=== PATIENT | male | born 1975 | race American Indian/Alaskan Native ===

== ENCOUNTER 2021-08-09 21:42 | Inpatient (IN) | payer OTHER ==
--- NOTE | 2021-08-09 22:04 | Emergency Department Report ---
ED General Adult HPI - General Chief complaint: Abdominal Pain Stated complaint: PANCREATITIS Time Seen by Provider: 08/09/21 22:03 Source: patient, EMS (Verbal report received from emergency medical services. EMS documentation not available at time of chart dictation ), RN notes reviewed, old records reviewed Mode of arrival: Stretcher Limitations: Physical Limitation - History of Present Illness Initial comments: The patient is a patient within the [facility] network. The patient is referred to the emergency room by the [facility] outside acute care facility for evaluation. The patient has a history of pancreatitis, and alcohol abuse, who presents to the ER today with acute abdominal pain. While at the [facility] outside facility, he received sodium chloride, Protonix, Zofran, Toradol, morphine, morphine, Benadryl, Zofran, Reglan, and hydromorphone. He received copious fluids, including a banana bag. He had an extensive laboratory evaluation performed, which demonstrated elevated lipase, of 1700, anion gap acidosis, with an anion gap of 29, was also found to have nonspecific transaminitis. The patient complains of profuse and diffuse abdominal pain with nausea and vomiting. No chest pain. No shortness of breath. No homicidality or suicidality. He was also found to have a GFR of 77, and a creatinine of 1.3. As his symptoms are markedly improved in the emergency room with additional hydromorphone. A CT scan of the abdomen pelvis and ultrasound were ordered, but had not been performed secondary to need to transfer this patient to the emergency room for emergent evaluation -: days(s) Location: abdomen Quality: aching Consistency: constant Improves with: medication, rest Worsens with: movement - Related Data Allergies Allergy/AdvReac Type Severity Reaction Status Date / Time sertraline Allergy Hives Verified 08/09/21 21:54 ED Review of Systems ROS: Stated complaint: PANCREATITIS Other details as noted in HPI Constitutional: malaise. denies: fever Eyes: denies: eye discharge ENT: denies: epistaxis Respiratory: denies: cough Cardiovascular: denies: chest pain Gastrointestinal: abdominal pain, nausea, vomiting Neurological: weakness Psychiatric: denies: homicidal thoughts, suicidal thoughts ED Physical Exam - General Limitations: Physical Limitation General appearance: alert, anxious, in distress, obese - Head Head exam: Present: atraumatic, normocephalic - Eye Eye exam: Present: normal appearance, EOMI. Absent: nystagmus - ENT ENT exam: Present: normal exam, mucous membranes dry, normal external ear exam - Neck Neck exam: Present: normal inspection, full ROM. Absent: tenderness, meningismus - Respiratory Respiratory exam: Present: normal lung sounds bilaterally. Absent: respiratory distress, wheezes, rales, rhonchi, stridor, decreased breath sounds - Cardiovascular Cardiovascular Exam: Present: normal rhythm, tachycardia, normal heart sounds. Absent: bradycardia, irregular rhythm, systolic murmur, diastolic murmur, rubs, gallop - GI/Abdominal GI/Abdominal exam: Present: soft, tenderness. Absent: distended, guarding, rebound, rigid, pulsatile mass - Rectal Rectal exam: Present: deferred - Extremities Exam Extremities exam: Present: normal inspection, full ROM, other (2+ pulses noted in the bilateral upper and lower extremities. There is no palpable cord. negative Homans sign. Muscular compartments are soft. The pelvis is stable.). Absent: pedal edema, calf tenderness - Back Exam Back exam: Present: normal inspection. Absent: tenderness, CVA tenderness (R), CVA tenderness (L), paraspinal tenderness, vertebral tenderness - Neurological Exam Neurological exam: Present: alert, oriented X3, other (No facial droop. Tongue midline. Extraocular movements intact bilaterally. Facial sensation intact to light touch in V1, V2, V3 distribution bilaterally. 5 and a 5 strength in 4 extremities. Sensation intact to light touch in 4 extremities.) - Psychiatric Psychiatric exam: Present: anxious. Absent: homicidal ideation, suicidal ideation - Skin Skin exam: Present: warm, dry, intact, normal color. Absent: rash ED Course Vital Signs 08/09/21 08/09/21 08/10/21 21:54 23:02 00:23 Temperature 98 F 97.9 F Pulse Rate 76 124 H 98 H Respiratory 18 32 H 19 Rate Blood Pressure 143/86 Blood Pressure 156/101 159/96 [Left] O2 Sat by Pulse 100 100 100 Oximetry - Reevaluation(s) Reevaluation #1: 08/09/21 23:42 Differential diagnosis, include but not limited to: Pancreatitis, dehydration, metabolic acidosis Assessment and plan: 45-year-old gentleman with outpatient laboratory studies suggesting dehydration, metabolic acidosis, transaminitis and pancreatitis. He is acutely tender, and may have a component of alcohol withdrawal, manifested by tachycardia, and tongue fasciculations. CT scan abdomen pelvis demonstrates pancreatitis. Laboratory studies pending, patient resting comfortably in stretcher at this time. We are currently reaching out to the [facility] to coordinate care. Recommend admission for acute pancreatitis, and correction of metabolic derangement. We are awaiting callback from their hub physician 08/10/21 00:10 Discussed the patient's history, physical, imaging studies and clinical impressi on with [facility] coordinating physician, Dr. Cottrell. He authorizes this patient to be admitted to this facility. I agree with this plan of care, given metabolic derangements, vital signs, and narcotic requirements for pain control. Hospital physician, Dr. Krystal Bullard to admit to [facility] ED Medical Decision Making - Lab Data Result diagrams: 08/09/21 23:04 08/09/21 23:04 Vital Signs 08/09/21 23:02 Temperature 97.9 F Pulse Rate 124 H Respiratory 32 H Rate Blood Pressure 156/101 [Left] O2 Sat by Pulse 100 Oximetry Lab Results 08/09/21 08/09/21 08/09/21 Range/Units 23:04 23:04 23:04 WBC 8.8 (4.5-11.0) K/mm3 RBC 3.19 L (3.65-5.03) M/mm3 Hgb 11.3 L (11.8-15.2) gm/dl Hct 33.9 L (35.5-45.6) % MCV 106 H (84-94) fl MCH 35 H (28-32) pg MCHC 33 (32-34) % RDW 15.0 (13.2-15.2) % Plt Count 194 (140-440) K/mm3 Lymph % (Auto) 7.5 L (13.4-35.0) % [place] % (Auto) 14.0 H (0.0-7.3) % Eos % (Auto) 0.0 (0.0-4.3) % Baso % (Auto) 0.1 (0.0-1.8) % Lymph # (Auto) 0.7 L (1.2-5.4) K/mm3 [place] # (Auto) 1.2 H (0.0-0.8) K/mm3 Eos # (Auto) 0.0 (0.0-0.4) K/mm3 Baso # (Auto) 0.0 (0.0-0.1) K/mm3 Seg Neutrophils % 78.4 H (40.0-70.0) % Seg Neutrophils # 6.9 (1.8-7.7) K/mm3 Sodium 135 L (137-145) mmol/L Potassium 4.3 (3.6-5.0) mmol/L Chloride 98.0 (98-107) mmol/L Carbon Dioxide 3 L* (22-30) mmol/L Anion Gap 38 mmol/L BUN 11 (9-20) mg/dL Creatinine 1.1 (0.8-1.3) mg/dL Estimated GFR > 60 ml/min BUN/Creatinine Ratio 10 % Glucose 213 H (75-100) mg/dL Calcium 7.4 L (8.4-10.2) mg/dL Magnesium 1.90 (1.7-2.3) mg/dL Total Bilirubin 1.30 H (0.1-1.2) mg/dL Direct Bilirubin 0.6 H (0-0.2) mg/dL Indirect Bilirubin 0.7 mg/dL AST 177 H (5-40) units/L ALT 80 H (7-56) units/L Alkaline Phosphatase 100 (35-129) units/L Total Creatine Kinase 86 (55-170) units/L Total Protein 7.0 (6.3-8.2) g/dL Albumin 3.7 L (3.9-5) g/dL Albumin/Globulin Ratio 1.1 % Lipase 2715 H (13-60) units/L Plasma/Serum Alcohol < 0.01 (0-0.07) % - EKG Data -: EKG Interpreted by In EKG shows normal: sinus rhythm Rate: tachycardia - EKG Data When compared to previous EKG there are: previous EKG unavailable 08/09/21 23:37 The EKG is interpreted at 22: 22 Sinus rhythm, tachycardia, rate 109 bpm. Normal axis, normal P wave axis, high left ventricular voltage, and motion artifact. This is an abnormal EKG. This is not a STEMI - Radiology Data Radiology results: pending, report reviewed, image reviewed CT ABDOMEN AND PELVIS WITH CONTRAST HISTORY: acute abd pain pancreatitis COMPARISON: None TECHNIQUE: Routine abdominal and pelvic CT exam performed following intravenous contrast administration.. All CT scans at this location are performed using CT dose reduction for ALARA by means of automated exposure control. FINDINGS: CT ABDOMEN: Lung Bases: No significant abnormality. Liver: Decreased attenuation consistent with hepatic steatosis. Biliary: Multiple gallstones in the gallbladder without wall thickening or distention. Spleen: No significant abnormality. Unenlarged. Pancreas: Peripancreatic fat stranding and edema consistent with acute pancreatitis. No appreciable chondrosis or fluid collection. Adrenals: No significant abnormality. Kidneys: No significant abnormality. Lymphatics: No lymphadenopathy. Vasculature: No significant abnormality. Bowel/Peritoneum: No significant abnormality. No free air. No free fluid. CT PELVIC: : No significant abnormality. Lymphatics: No lymphadenopathy. Osseous Structures: No aggressive appearing osseous lesions. Additional Findings: None IMPRESSION: 1. Acute pancreatitis without necrosis or fluid collection. 2. Hepatic steatosis. 3. Cholelithiasis without evidence of acute cholecystitis. Signer Name: Raffy Redman MD Signed: 08/09/2021 10:18 PM Workstation Name: [id number] Critical care attestation.: If time is entered above; I have spent that time in minutes in the direct care of this critically ill patient, excluding procedure time. ED Disposition Clinical Impression: Acute abdominal pain, Metabolic acidosis, Acute pancreatitis, Alcohol dependence Disposition: 09 ADMITTED INPATIENT Is pt being admited?: Yes Does the pt Need Aspirin: No Condition: Good
[2021-08-09] MEDS ORDERED: HYDROmorphone 1 MG/1 ML INJ IV ONE ×2 (22:26→23:08)
[2021-08-09] MEDS ORDERED: METOCLOPRAMIDE 10 MG/2 ML INJ IV ONE (22:26)
[2021-08-09] MEDS ORDERED: LACTATED RINGERS 1,000 ML IV ONE (22:26)
[2021-08-09] MEDS ORDERED: LORazepam 2 MG/ML VIAL IV PRN ×2 (22:26)
[2021-08-09] MEDS ORDERED: FAMOTIDINE 20 MG/2 ML INJ IV ONE (23:16)
--- NOTE | 2021-08-09 23:23 | Cat Scan Report ---
CT ABDOMEN AND PELVIS WITH CONTRAST HISTORY: acute abd pain pancreatitis COMPARISON: None TECHNIQUE: Routine abdominal and pelvic CT exam performed following intravenous contrast administrat ion.. All CT scans at this location are performed using CT dose reduction for ALARA by means of autom ated exposure control. FINDINGS: CT ABDOMEN: Lung Bases: No significant abnormality. Liver: Decreased attenuation consistent with hepatic steatosis. Biliary: Multiple gallstones in the gallbladder without wall thickening or distention. Spleen: No significant abnormality. Unenlarged. Pancreas: Peripancreatic fat stranding and edema consistent with acute pancreatitis. No appreciable c hondrosis or fluid collection. Adrenals: No significant abnormality. Kidneys: No significant abnormality. Lymphatics: No lymphadenopathy. Vasculature: No significant abnormality. Bowel/Peritoneum: No significant abnormality. No free air. No free fluid. CT PELVIC: : No significant abnormality. Lymphatics: No lymphadenopathy. Osseous Structures: No aggressive appearing osseous lesions. Additional Findings: None IMPRESSION: 1. Acute pancreatitis without necrosis or fluid collection. 2. Hepatic steatosis. 3. Cholelithiasis without evidence of acute cholecystitis. Signer Name: Raffy Redman MD Signed: 08/09/2021 11:18 PM Workstation Name: [id number]
[2021-08-10] MEDS ORDERED: HYDROmorphone 1 MG/1 ML INJ IV ONE (00:07)
[2021-08-10 00:15] LABS: Alanine Aminotransferase 80 units/L (7-56); Albumin 3.7 g/dL (3.9-5); BUN/Creatinine Ratio 10; Bilirubin,Direct 0.6 mg/dL (0-0.2); Blood Urea Nitrogen 11 mg/dL (9-20); Calcium 7.4 mg/dL (8.4-10.2); Hemolysis Index 98
[2021-08-10 00:32] LABS: Basophils % (Auto) 0.1 % (0.0-1.8); Hematocrit 33.9 % (35.5-45.6); Hemoglobin 11.3 gm/dl (11.8-15.2); Lymphocytes # (Auto) 0.7 K/mm3 (1.2-5.4); Lymphocytes % (Auto) 7.5 % (13.4-35.0); Mean Corpuscular HGB Conc 33 % (32-34); Mean Corpuscular Volume 106 fl (84-94); Monocytes # (Auto) 1.2 K/mm3 (0.0-0.8); Platelet Count 194 K/mm3 (140-440); Red Blood Count 3.19 M/mm3 (3.65-5.03)
[2021-08-10] MEDS ORDERED: SODIUM CHLORIDE 0.9% 1000 ML 2,000 ML IV ONE (00:57)
--- NOTE | 2021-08-10 01:11 | History and Physical Report ---
History of Present Illness Date of examination: 08/10/21 Date of admission: August 10, 2021 Chief complaint: Severe abdominal pain for 2 days History of present illness: 45-year-old -[place] female with no significant past medical history except for pancreatitis in the past sent by [facility] for severe abdominal pain of 2 days duration. Patient was also sent with abnormal labs. As per [place] patient has high lipase level of 1700, metabolic acidosis and transaminitis. Work-up was done in the emergency room which also showed increased lipase and pancreatitis on CT scan of the abdomen. Patient is being admitted for severe abdominal pain and nausea and vomiting of 2 days duration. Patient had alcohol 2 days ago. Patient is is not willing to quantify the alcohol level amount he is taking. Patient is a poor historian. Pain is 10 on a scale of 1-10. Severe and sharp in nature. Review of Systems ROS: Stated complaint: PANCREATITIS Other details as noted in HPI Constitutional: malaise. denies: fever Eyes: denies: eye discharge ENT: denies: epistaxis Respiratory: denies: cough Cardiovascular: denies: chest pain Gastrointestinal: abdominal pain, nausea, vomiting Neurological: weakness Psychiatric: denies: homicidal thoughts, suicidal thoughts Past History Past Medical History: hypertension, other (Pancreatitis) Past Surgical History: No surgical history Social history: lives with family, alcohol abuse, full code Family history: hypertension Medications and Allergies Allergies Allergy/AdvReac Type Severity Reaction Status Date / Time sertraline Allergy Hives Verified 08/09/21 21:54 Active Meds: Active Medications Lorazepam (Lorazepam 2 Mg/Ml Vial) 2 mg IV Q1HR PRN PRN Reason: CIWA-Ar 8-15 Lorazepam (Lorazepam 2 Mg/Ml Vial) 4 mg IV Q1HR PRN PRN Reason: CIWA-Ar 16-25 Lorazepam (Lorazepam 2 Mg/Ml Vial) 4 mg IV Q15MIN PRN PRN Reason: CIWA-Ar >25 Exam - Constitutional Vitals: Temp Pulse Resp BP Pulse Ox 97.9 F 98 H 19 159/96 100 08/09/21 23:02 08/10/21 00:23 08/10/21 00:23 08/10/21 00:23 08/10/21 00:23 General appearance: Present: severe distress, well-nourished - EENT Eyes: Present: PERRL ENT: hearing intact, clear oral mucosa - Neck Neck: Present: supple, normal ROM - Respiratory Respiratory effort: normal Respiratory: bilateral: CTA - Cardiovascular Heart rate: 78 Rhythm: regular Heart Sounds: Present: S1 & S2. Absent: rub, click - Extremities Extremities: pulses symmetrical, No edema Peripheral Pulses: within normal limits - Abdominal General gastrointestinal: Present: soft, tender, non-distended, normal bowel sounds Localized gastrointestinal: tender: diffuse, guarding: diffuse, rebound: diffuse Male genitourinary: Present: normal - Integumentary Integumentary: Present: clear, warm, dry - Musculoskeletal Musculoskeletal: gait normal, strength equal bilaterally - Psychiatric Psychiatric: appropriate mood/affect, intact judgment & insight - Neurologic Neurologic: CNII-XII intact, moves all extremities - Allied Health Allied health notes reviewed: nursing, case management Results - Labs CBC & Chem 7: 08/09/21 23:04 08/09/21 23:04 Labs: Laboratory Last Values WBC 8.8 K/mm3 (4.5-11.0) 08/09/21 23:04 RBC 3.19 M/mm3 (3.65-5.03) L 08/09/21 23:04 Hgb 11.3 gm/dl (11.8-15.2) L 08/09/21 23:04 Hct 33.9 % (35.5-45.6) L 08/09/21 23:04 MCV 106 fl (84-94) H 08/09/21 23:04 MCH 35 pg (28-32) H 08/09/21 23:04 MCHC 33 % (32-34) 08/09/21 23:04 RDW 15.0 % (13.2-15.2) 08/09/21 23:04 Plt Count 194 K/mm3 (140-440) 08/09/21 23:04 Lymph % (Auto) 7.5 % (13.4-35.0) L 08/09/21 23:04 [place] % (Auto) 14.0 % (0.0-7.3) H 08/09/21 23:04 Eos % (Auto) 0.0 % (0.0-4.3) 08/09/21 23:04 Baso % (Auto) 0.1 % (0.0-1.8) 08/09/21 23:04 Lymph # (Auto) 0.7 K/mm3 (1.2-5.4) L 08/09/21 23:04 [place] # (Auto) 1.2 K/mm3 (0.0-0.8) H 08/09/21 23:04 Eos # (Auto) 0.0 K/mm3 (0.0-0.4) 08/09/21 23:04 Baso # (Auto) 0.0 K/mm3 (0.0-0.1) 08/09/21 23:04 Seg Neutrophils % 78.4 % (40.0-70.0) H 08/09/21 23:04 Seg Neutrophils # 6.9 K/mm3 (1.8-7.7) 08/09/21 23:04 Sodium 135 mmol/L (137-145) L 08/09/21 23:04 Potassium 4.3 mmol/L (3.6-5.0) 08/09/21 23:04 Chloride 98.0 mmol/L (98-107) 08/09/21 23:04 Carbon Dioxide 3 mmol/L (22-30) L* 08/09/21 23:04 Anion Gap 38 mmol/L 08/09/21 23:04 BUN 11 mg/dL (9-20) 08/09/21 23:04 Creatinine 1.1 mg/dL (0.8-1.3) 08/09/21 23:04 Estimated GFR > 60 ml/min 08/09/21 23:04 BUN/Creatinine Ratio 10 % 08/09/21 23:04 Glucose 213 mg/dL (75-100) H 08/09/21 23:04 Calcium 7.4 mg/dL (8.4-10.2) L 08/09/21 23:04 Magnesium 1.90 mg/dL (1.7-2.3) 08/09/21 23:04 Total Bilirubin 1.30 mg/dL (0.1-1.2) H 08/09/21 23:04 Direct Bilirubin 0.6 mg/dL (0-0.2) H 08/09/21 23:04 Indirect Bilirubin 0.7 mg/dL 08/09/21 23:04 AST 177 units/L (5-40) H 08/09/21 23:04 ALT 80 units/L (7-56) H 08/09/21 23:04 Alkaline Phosphatase 100 units/L (35-129) 08/09/21 23:04 Total Creatine Kinase 86 units/L (55-170) 08/09/21 23:04 Total Protein 7.0 g/dL (6.3-8.2) 08/09/21 23:04 Albumin 3.7 g/dL (3.9-5) L 08/09/21 23:04 Albumin/Globulin Ratio 1.1 % 08/09/21 23:04 Lipase 2715 units/L (13-60) H 08/09/21 23:04 Plasma/Serum Alcohol < 0.01 % (0-0.07) 08/09/21 23:04 Short CBC 08/09/21 Range/Units 23:04 WBC 8.8 (4.5-11.0) K/mm3 Hgb 11.3 L (11.8-15.2) gm/dl Hct 33.9 L (35.5-45.6) % Plt Count 194 (140-440) K/mm3 BMP 08/09/21 23:04 Sodium 135 L Potassium 4.3 Chloride 98.0 Carbon Dioxide 3 L* BUN 11 Creatinine 1.1 Glucose 213 H Calcium 7.4 L Cardiac Enzymes 08/09/21 Range/Units 23:04 Total Creatine Kinase 86 (55-170) units/L Liver Function 08/09/21 Range/Units 23:04 Total Bilirubin 1.30 H (0.1-1.2) mg/dL Direct Bilirubin 0.6 H (0-0.2) mg/dL AST 177 H (5-40) units/L ALT 80 H (7-56) units/L Alkaline Phosphatase 100 (35-129) units/L Albumin 3.7 L (3.9-5) g/dL Urine 08/10/21 Range/Units 01:25 Urine Color Yellow (Yellow) Urine pH 5.0 (5.0-7.0) Ur Specific [place] 1.028 (1.003-1.030) Urine Protein 30 mg/dl (Negative) mg/dL Urine Glucose (UA) 50 (Negative) mg/dL - Imaging and Cardiology CT scan - abdomen: report reviewed Imaging and Cardiology: CT of the abdomen Findings Biliary multiple gallstones in the gallbladder without wall thickening or distention Pancreas--peripancreatic fat stranding and edema consistent with acute pancreatitis. No appreciable chondrosis of fluid collection. Final impression acute pancreatitis without necrosis of fluid collection Hepatic steatosis Cholelithiasis without evidence of cholecystitis Assessment and Plan Advance Directives: Yes (Full code) VTE prophylaxis?: Chemical Plan of care discussed with patient/family: Yes - Patient Problems (1) Acute pancreatitis Current Visit: Yes Status: Acute Plan to address problem: Possible alcohol induced versus gallstone induced. Patient has multiple gallstones without acute cholecystitis Lipase is 2715 We will keep the patient n.p.o. IV fluids for now Pain control for now (2) Metabolic acidosis Current Visit: Yes Status: Acute Plan to address problem: Secondary to persistent vomiting IV fluids for now Check bicarb level (3) Dehydration Current Visit: Yes Status: Acute Plan to address problem: IV fluids for now (4) EtOH dependence Current Visit: Yes Status: Acute Plan to address problem: CIWA protocol initiated (5) Cholelithiasis Current Visit: Yes Status: Chronic Qualifiers: Cholelithiasis location: gallbladder Biliary obstruction: without biliary obstruction Plan to address problem: Cholelithiasis without cholecystitis Surgery consult (6) Transaminitis Current Visit: Yes Status: Acute Plan to address problem: Check hepatitis profile Possible alcohol induced Possible gallstone induced (7) Hypocalcemia Current Visit: Yes Status: Acute Plan to address problem: IV calcium given Caltrate when the pancreatitis resolves (8) Anemia Current Visit: Yes Status: Chronic Plan to address problem: Anemia work-up Serum folic acid and B12 levels and iron levels (9) Malnutrition Current Visit: Yes Status: Chronic Qualifiers: Protein-calorie malnutrition severity: mild Plan to address problem: Dietary supplements when patient starts eating (10) DVT prophylaxis Current Visit: Yes Status: Acute Plan to address problem: On heparin and GI prophylaxis (11) Advance care planning Current Visit: Yes Status: Acute Plan to address problem: Disease education conducted, care plan discussed, diagnosis discussed, prognosis discussed. Patient is full code./Patient acknowledged understanding and agreement with care plan +30 minutes.
[2021-08-10] MEDS ORDERED: HYDROmorphone 1 MG/1 ML INJ IV PRN (01:21)
[2021-08-10 01:56] LABS: INR 1.15 (0.87-1.13)
[2021-08-10 02:06] LABS: Bilirubin,Urine NEG (Negative); Blood,Urine SM (Negative); Color,Urine Yellow (Yellow); Hyaline Casts,Urine 13 /LPF; Mucus,Urine FEW /HPF; Urobilinogen,Urine < 2.0 mg/dL (<2.0)
[2021-08-10] MEDS: ONDANSETRON 4 MG/2 ML INJ IV PRN ×2 (03:07→22:36)
[2021-08-10] MEDS: MORPHINE 2 MG/1 ML INJ IV PRN ×4 (03:08→20:42)
[2021-08-10] MEDS: LORazepam 2 MG/ML VIAL IV PRN ×2 (05:13→15:42)
[2021-08-10] MEDS: D5W/0.9% NACL 1,000 ML IV SCH (05:37)
[2021-08-10] MEDS ORDERED: CALCIUM GLUCONATE 2,000 MG in SODIUM CHLORIDE 0.9% 100 ML IV ONE (05:53)
[2021-08-10 06:12] LABS: Alanine Aminotransferase 91 units/L (7-56); Albumin 4.8 g/dL (3.9-5); BUN/Creatinine Ratio 6; Blood Urea Nitrogen 7 mg/dL (9-20); Calcium 8.3 mg/dL (8.4-10.2); Hemolysis Index 3
[2021-08-10 06:13] LABS: % Iron Saturation 20.97 %
[2021-08-10 06:23] LABS: Basophils % (Auto) 0.1 % (0.0-1.8); Hematocrit 40.9 % (35.5-45.6); Hemoglobin 13.8 gm/dl (11.8-15.2); Lymphocytes # (Auto) 0.5 K/mm3 (1.2-5.4); Lymphocytes % (Auto) 5.7 % (13.4-35.0); Mean Corpuscular HGB Conc 34 % (32-34); Mean Corpuscular Volume 106 fl (84-94); Monocytes # (Auto) 0.8 K/mm3 (0.0-0.8); Platelet Count 199 K/mm3 (140-440); Red Blood Count 3.86 M/mm3 (3.65-5.03)
--- NOTE | 2021-08-10 07:43 | Consultation ---
History of Present Illness Consult date: 08/10/21 Reason for consult: abdominal pain Chief complaint: 45-year-old -[place]ian female with no significant past medical history except for pancreatitis in the past sent by [facility] for severe abdominal pain of 2 days duration. Patient was also sent with abnormal labs. As per [place] patient has high lipase level of 1700, metabolic acidosis and transaminitis. Work-up was done in the emergency room which also showed increased lipase and pancreatitis on CT scan of the abdomen. Patient is being admitted for severe abdominal pain and nausea and vomiting of 2 days duration. Patient had alcohol 2 days ago. Patient is is not willing to quantify the alcohol level amount he is taking. Patient is a poor historian. Pain is 10 on a scale of 1-10. Severe and sharp in nature. Patient seen this morning with continued pain and nausea no vomiting. He was given an explanation of his pain being from pancreatitis related to EtOH. He is advised to abstain from any further alcohol use. Continue n.p.o. at this time. Past History Past Medical History: hypertension, other (Pancreatitis) Past Surgical History: No surgical history Social history: lives with family, alcohol abuse, full code Family history: hypertension Medications and Allergies Allergies Allergy/AdvReac Type Severity Reaction Status Date / Time sertraline Allergy Hives Verified 08/09/21 21:54 Active Meds: Active Medications Acetaminophen (Acetaminophen 325 Mg Tab) 650 mg PO Q4H PRN PRN Reason: Pain MILD(1-3)/Fever >100.5/MATIAS Heparin Sodium (Porcine) (Heparin 5,000 Unit/1 Ml Vial) 5,000 unit SUB-Q Q12HR TINO Hydromorphone HCl (Hydromorphone 1 Mg/1 Ml Inj) 1 mg IV Q2H PRN PRN Reason: Pain , Severe (7-10) Dextrose/Sodium Chloride (D5ns) 1,000 mls @ 100 mls/hr IV DIRECT TINO Last Admin: 08/10/21 05:37 Dose: 100 mls/hr Lorazepam (Lorazepam 2 Mg/Ml Vial) 2 mg IV Q1HR PRN PRN Reason: CIWA-Ar 8-15 Last Admin: 08/10/21 05:13 Dose: 2 mg Lorazepam (Lorazepam 2 Mg/Ml Vial) 4 mg IV Q1HR PRN PRN Reason: CIWA-Ar 16-25 Lorazepam (Lorazepam 2 Mg/Ml Vial) 4 mg IV Q15MIN PRN PRN Reason: CIWA-Ar >25 Metoclopramide HCl (Metoclopramide 10 Mg/2 Ml Inj) 10 mg IV Q6H PRN PRN Reason: Nausea And Vomiting Morphine Sulfate (Morphine 2 Mg/1 Ml Inj) 2 mg IV Q4H PRN PRN Reason: Pain, Moderate (4-6) Last Admin: 08/10/21 03:08 Dose: 2 mg Ondansetron HCl (Ondansetron 4 Mg/2 Ml Inj) 4 mg IV Q3H PRN PRN Reason: Nausea And Vomiting Last Admin: 08/10/21 03:07 Dose: 4 mg Sodium Chloride (Sodium Chloride 0.9% 10 Ml Flush Syringe) 10 ml IV BID TINO Sodium Chloride (Sodium Chloride 0.9% 10 Ml Flush Syringe) 10 ml IV PRN PRN PRN Reason: LINE FLUSH Exam Vital Signs Temp Pulse Resp BP Pulse Ox 98 F 76 18 143/86 100 08/09/21 21:54 08/09/21 21:54 08/09/21 21:54 08/09/21 21:54 08/09/21 21:54 - General physical appearance Positive: well developed - Eyes Positive: PERRL - Neck Positive: no masses, no bruits, trachea midline - Respiratory Positive: normal expansion - Cardiovascular Rhythm: regular - Extremities Extremities: no ischemia, No edema - Abdomen Abdomen: Present: tender, guarding. Absent: distended, masses, rebound, rigid - Integumentary no rash - Neurologic Neurologic: alert and oriented to time, place and person, motor strength and sensation are grossly intact, CN II-XII intact Results - Labs 08/10/21 05:32 08/10/21 05:32 Abnormal lab results 08/09/21 08/09/21 08/09/21 Range/Units 23:04 23:04 23:04 RBC 3.19 L (3.65-5.03) M/mm3 Hgb 11.3 L (11.8-15.2) gm/dl Hct 33.9 L (35.5-45.6) % MCV 106 H (84-94) fl MCH 35 H (28-32) pg Lymph % (Auto) 7.5 L (13.4-35.0) % Lucas % (Auto) 14.0 H (0.0-7.3) % Lymph # (Auto) 0.7 L (1.2-5.4) K/mm3 Lucas # (Auto) 1.2 H (0.0-0.8) K/mm3 Seg Neutrophils % 78.4 H (40.0-70.0) % PT 16.0 H (12.2-14.9) Sec. INR 1.15 H (0.87-1.13) Sodium 135 L (137-145) mmol/L Carbon Dioxide 3 L* (22-30) mmol/L BUN (9-20) mg/dL Glucose 213 H (75-100) mg/dL Calcium 7.4 L (8.4-10.2) mg/dL Total Bilirubin 1.30 H (0.1-1.2) mg/dL Direct Bilirubin 0.6 H (0-0.2) mg/dL AST 177 H (5-40) units/L ALT 80 H (7-56) units/L Total Protein (6.3-8.2) g/dL Albumin 3.7 L (3.9-5) g/dL Lipase 2715 H (13-60) units/L Vitamin B12 (211-911) pg/mL 08/10/21 08/10/21 08/10/21 Range/Units 05:32 05:32 05:32 RBC (3.65-5.03) M/mm3 Hgb (11.8-15.2) gm/dl Hct (35.5-45.6) % MCV 106 H (84-94) fl MCH 36 H (28-32) pg Lymph % (Auto) 5.7 L (13.4-35.0) % Lucas % (Auto) 9.0 H (0.0-7.3) % Lymph # (Auto) 0.5 L (1.2-5.4) K/mm3 Lucas # (Auto) (0.0-0.8) K/mm3 Seg Neutrophils % 85.2 H (40.0-70.0) % PT (12.2-14.9) Sec. INR (0.87-1.13) Sodium 135 L (137-145) mmol/L Carbon Dioxide 7 L* (22-30) mmol/L BUN 7 L (9-20) mg/dL Glucose 222 H (75-100) mg/dL Calcium 8.3 L (8.4-10.2) mg/dL Total Bilirubin 1.50 H (0.1-1.2) mg/dL Direct Bilirubin (0-0.2) mg/dL AST 179 H (5-40) units/L ALT 91 H (7-56) units/L Total Protein 8.6 H D (6.3-8.2) g/dL Albumin (3.9-5) g/dL Lipase (13-60) units/L Vitamin B12 1189 H (211-911) pg/mL Diabetes panel 08/09/21 08/10/21 Range/Units 23:04 05:32 Sodium 135 L 135 L (137-145) mmol/L Potassium 4.3 4.7 (3.6-5.0) mmol/L Chloride 98.0 101.4 (98-107) mmol/L Carbon Dioxide 3 L* 7 L* (22-30) mmol/L BUN 11 7 L (9-20) mg/dL Creatinine 1.1 1.1 (0.8-1.3) mg/dL Glucose 213 H 222 H (75-100) mg/dL Calcium 7.4 L 8.3 L (8.4-10.2) mg/dL AST 177 H 179 H (5-40) units/L ALT 80 H 91 H (7-56) units/L Alkaline Phosphatase 100 115 (35-129) units/L Total Protein 7.0 8.6 H D (6.3-8.2) g/dL Albumin 3.7 L 4.8 (3.9-5) g/dL Calcium panel 08/09/21 08/10/21 Range/Units 23:04 05:32 Calcium 7.4 L 8.3 L (8.4-10.2) mg/dL Albumin 3.7 L 4.8 (3.9-5) g/dL Pituitary panel 08/09/21 08/10/21 Range/Units 23:04 05:32 Sodium 135 L 135 L (137-145) mmol/L Potassium 4.3 4.7 (3.6-5.0) mmol/L Chloride 98.0 101.4 (98-107) mmol/L Carbon Dioxide 3 L* 7 L* (22-30) mmol/L BUN 11 7 L (9-20) mg/dL Creatinine 1.1 1.1 (0.8-1.3) mg/dL Glucose 213 H 222 H (75-100) mg/dL Calcium 7.4 L 8.3 L (8.4-10.2) mg/dL Adrenal panel 08/09/21 08/10/21 Range/Units 23:04 05:32 Sodium 135 L 135 L (137-145) mmol/L Potassium 4.3 4.7 (3.6-5.0) mmol/L Chloride 98.0 101.4 (98-107) mmol/L Carbon Dioxide 3 L* 7 L* (22-30) mmol/L BUN 11 7 L (9-20) mg/dL Creatinine 1.1 1.1 (0.8-1.3) mg/dL Glucose 213 H 222 H (75-100) mg/dL Calcium 7.4 L 8.3 L (8.4-10.2) mg/dL Total Bilirubin 1.30 H 1.50 H (0.1-1.2) mg/dL AST 177 H 179 H (5-40) units/L ALT 80 H 91 H (7-56) units/L Alkaline Phosphatase 100 115 (35-129) units/L Total Protein 7.0 8.6 H D (6.3-8.2) g/dL Albumin 3.7 L 4.8 (3.9-5) g/dL Assessment and Plan This is a 45-year-old male patient admitted with abdominal pain consistent with acute pancreatitis probably EtOH pancreatitis. Continue n.p.o. IV fluids and analgesics. We will follow patient with you.
[2021-08-10] MEDS: METOCLOPRAMIDE 10 MG/2 ML INJ IV PRN (09:19)
[2021-08-10] MEDS: HEPARIN 5,000 UNIT/1 ML VIAL SUB-Q SCH ×2 (09:30→21:29)
--- NOTE | 2021-08-10 09:38 | Event Note ---
Date: 08/10/21 This is a follow-up from an admission earlier this morning. Patient seen and examined. 45-year-old male admitted with abdominal pain consistent with acute pancreatitis probably secondary to EtOH. We will continue to plan as outlined in H&P. Total visit time equals 32 minutes with greater than 50% spent on coordination of care and counseling.
[2021-08-11] MEDS: LORazepam 2 MG/ML VIAL IV PRN ×2 (01:16→03:28)
[2021-08-11] MEDS: D5W/0.9% NACL 1,000 ML IV SCH ×2 (04:55→21:37)
[2021-08-11] MEDS: MORPHINE 2 MG/1 ML INJ IV PRN (06:12)
[2021-08-11 07:59] LABS: Hemoglobin 11.8 gm/dl (11.8-15.2); Mean Corpuscular HGB Conc 35 % (32-34); Mean Corpuscular Volume 102 fl (84-94); Platelet Count 160 K/mm3 (140-440); Red Blood Count 3.32 M/mm3 (3.65-5.03); Red Cell Distribution Width 14.8 % (13.2-15.2)
[2021-08-11 08:22] LABS: Alanine Aminotransferase 68 units/L (7-56); Albumin 3.9 g/dL (3.9-5); Blood Urea Nitrogen 3 mg/dL (9-20); Calcium 9.5 mg/dL (8.4-10.2); Hemolysis Index 2
[2021-08-11 08:34] LABS: BUN/Creatinine Ratio 4
[2021-08-11 08:57] LABS: Basophils % (Manual) 0 % (0.0-1.8); Total Cells Counted 100
[2021-08-11 08:58] LABS: Band Neutrophils # (Manual) 0.6 K/mm3; Eosinophils % (Manual) 0 % (0.0-4.3); RBC Morphology Normal
[2021-08-11 08:59] LABS: Platelet Estimate Consistent w Auto; Toxic Granulation 2+
[2021-08-11] MEDS: HEPARIN 5,000 UNIT/1 ML VIAL SUB-Q SCH ×2 (10:54→21:38)
--- NOTE | 2021-08-11 18:18 | Progress Note ---
Assessment and Plan Assessment and plan: Advance Directives: Yes (Full code) VTE prophylaxis?: Chemical Plan of care discussed with patient/family: Yes -- Acute pancreatitis Current Visit: Yes Status: Acute Plan to address problem: Possible alcohol induced versus gallstone induced. Patient has multiple gallstones without acute cholecystitis Lipase is 2715 We will keep the patient n.p.o. IV fluids for now Pain control for now -- Metabolic acidosis Current Visit: Yes Status: Acute Secondary to persistent vomiting IV fluids for now Check bicarb level -- Dehydration Current Visit: Yes Status: Acute IV fluids for now -- EtOH dependence Current Visit: Yes Status: Acute CIWA protocol initiated --Cholelithiasis Current Visit: Yes Status: Chronic Cholelithiasis without cholecystitis Surgery consult -- Transaminitis Current Visit: Yes Status: Acute Check hepatitis profile Possible alcohol induced Possible gallstone induced -- Hypocalcemia Current Visit: Yes Status: Acute IV calcium given Caltrate when the pancreatitis resolves -- Anemia Current Visit: Yes Status: Chronic Anemia work-up Serum folic acid and B12 levels and iron levels --Malnutrition Current Visit: Yes Status: Chronic Dietary supplements when patient starts eating --Monitor for alcohol withdrawal symptoms; CIWA protocol as needed Thiamine folic acid IV fluids -- DVT prophylaxis Current Visit: Yes Status: Acute On heparin and GI prophylaxis -- Advance care planning Current Visit: Yes Status: Acute Disease education conducted, care plan discussed, diagnosis discussed, prognosis discussed. Patient is full code./Patient acknowledged understanding and agreement with care plan +30 minutes. We will closely monitor patient and adjust the management as needed Plan of care reviewed with the patient and his sister at the bedside Reviewed with the nurse and the case management We will contact [place] physician and update patient's condition tests and reports and treatment plan. History Interval history: Seen and examined the patient at the bedside Patient's chart and medications reviewed Patient is severely confused however responds to very simple questions appropriately Patient is lethargic Vital signs noted Hospitalist Physical - Constitutional Vitals: Temp Pulse Resp BP Pulse Ox 99.7 F H 121 H 19 123/80 100 08/11/21 17:14 08/11/21 17:14 08/11/21 17:14 08/11/21 17:14 08/11/21 17:14 General appearance: Present: severe distress, well-nourished - EENT Eyes: Present: PERRL, EOM intact - Neck Neck: Present: supple, normal ROM - Respiratory Respiratory effort: normal Respiratory: bilateral: diminished, negative: rales, rhonchi, wheezing - Cardiovascular Rhythm: regular Heart Sounds: Present: S1 & S2 - Extremities Extremities: no ischemia, No edema - Abdominal General gastrointestinal: soft, non-tender, non-distended, normal bowel sounds - Integumentary Integumentary: Present: clear, warm - Psychiatric Psychiatric: appropriate mood/affect - Neurologic Neurologic: CNII-XII intact, moves all extremities Results - Labs CBC & Chem 7: 08/11/21 07:26 08/11/21 07:26 Labs: Laboratory Last Values WBC 11.9 K/mm3 (4.5-11.0) H 08/11/21 07:26 RBC 3.32 M/mm3 (3.65-5.03) L 08/11/21 07:26 Hgb 11.8 gm/dl (11.8-15.2) 08/11/21 07:26 Hct 34.0 % (35.5-45.6) L D 08/11/21 07:26 MCV 102 fl (84-94) H 08/11/21 07:26 MCH 36 pg (28-32) H 08/11/21 07:26 MCHC 35 % (32-34) H 08/11/21 07:26 RDW 14.8 % (13.2-15.2) 08/11/21 07:26 Plt Count 160 K/mm3 (140-440) 08/11/21 07:26 Lymph % (Auto) 5.7 % (13.4-35.0) L 08/10/21 05:32 Graham % (Auto) 9.0 % (0.0-7.3) H 08/10/21 05:32 Eos % (Auto) 0.0 % (0.0-4.3) 08/10/21 05:32 Baso % (Auto) 0.1 % (0.0-1.8) 08/10/21 05:32 Lymph # (Auto) 0.5 K/mm3 (1.2-5.4) L 08/10/21 05:32 Graham # (Auto) 0.8 K/mm3 (0.0-0.8) 08/10/21 05:32 Eos # (Auto) 0.0 K/mm3 (0.0-0.4) 08/10/21 05:32 Baso # (Auto) 0.0 K/mm3 (0.0-0.1) 08/10/21 05:32 Add Manual Diff Complete 08/11/21 07:26 Total Counted 100 08/11/21 07:26 Seg Neutrophils % 85.2 % (40.0-70.0) H 08/10/21 05:32 Seg Neuts % (Manual) 89.0 % (40.0-70.0) H 08/11/21 07:26 Band Neutrophils % 5.0 % 08/11/21 07:26 Lymphocytes % (Manual) 3.0 % (13.4-35.0) L 08/11/21 07:26 Reactive Lymphs % (Man) 0 % 08/11/21 07:26 Monocytes % (Manual) 3.0 % (0.0-7.3) 08/11/21 07:26 Eosinophils % (Manual) 0 % (0.0-4.3) 08/11/21 07:26 Basophils % (Manual) 0 % (0.0-1.8) 08/11/21 07:26 Metamyelocytes % 0 % 08/11/21 07:26 Myelocytes % 0 % 08/11/21 07:26 Promyelocytes % 0 % 08/11/21 07:26 Blast Cells % 0 % 08/11/21 07:26 Nucleated RBC % Not Reportable 08/11/21 07:26 Seg Neutrophils # 7.4 K/mm3 (1.8-7.7) 08/10/21 05:32 Seg Neutrophils # Man 10.6 K/mm3 (1.8-7.7) H 08/11/21 07:26 Band Neutrophils # 0.6 K/mm3 08/11/21 07:26 Lymphocytes # (Manual) 0.4 K/mm3 (1.2-5.4) L 08/11/21 07:26 Abs React Lymphs (Man) 0.0 K/mm3 08/11/21 07:26 Monocytes # (Manual) 0.4 K/mm3 (0.0-0.8) 08/11/21 07:26 Eosinophils # (Manual) 0.0 K/mm3 (0.0-0.4) 08/11/21 07:26 Basophils # (Manual) 0.0 K/mm3 (0.0-0.1) 08/11/21 07:26 Metamyelocytes # 0.0 K/mm3 08/11/21 07:26 Myelocytes # 0.0 K/mm3 08/11/21 07:26 Promyelocytes # 0.0 K/mm3 08/11/21 07:26 Blast Cells # 0.0 K/mm3 08/11/21 07:26 WBC Morphology Not Reportable 08/11/21 07:26 Hypersegmented Neuts Not Reportable 08/11/21 07:26 Hyposegmented Neuts Not Reportable 08/11/21 07:26 Hypogranular Neuts Not Reportable 08/11/21 07:26 Smudge Cells Not Reportable 08/11/21 07:26 Toxic Granulation 2+ 08/11/21 07:26 Toxic Vacuolation Not Reportable 08/11/21 07:26 Dohle Bodies Not Reportable 08/11/21 07:26 Pelger-Huet Anomaly Not Reportable 08/11/21 07:26 Srinivasan Rods Not Reportable 08/11/21 07:26 Platelet Estimate Consistent w auto 08/11/21 07:26 Clumped Platelets Not Reportable 08/11/21 07:26 Plt Clumps, EDTA Not Reportable 08/11/21 07:26 Large Platelets Not Reportable 08/11/21 07:26 Giant Platelets Not Reportable 08/11/21 07:26 Platelet Satelliting Not Reportable 08/11/21 07:26 Plt Morphology Comment Not Reportable 08/11/21 07:26 RBC Morphology Normal 08/11/21 07:26 Dimorphic RBCs Not Reportable 08/11/21 07:26 Polychromasia Not Reportable 08/11/21 07:26 Hypochromasia Not Reportable 08/11/21 07:26 Poikilocytosis Not Reportable 08/11/21 07:26 Anisocytosis Not Reportable 08/11/21 07:26 Microcytosis Not Reportable 08/11/21 07:26 Macrocytosis Not Reportable 08/11/21 07:26 Spherocytes Not Reportable 08/11/21 07:26 Pappenheimer Bodies Not Reportable 08/11/21 07:26 Sickle Cells Not Reportable 08/11/21 07:26 Target Cells Not Reportable 08/11/21 07:26 Tear Drop Cells Not Reportable 08/11/21 07:26 Ovalocytes Not Reportable 08/11/21 07:26 Helmet Cells Not Reportable 08/11/21 07:26 Marquez-[place] Bodies Not Reportable 08/11/21 07:26 Kalama Rings Not Reportable 08/11/21 07:26 Bethel Cells Not Reportable 08/11/21 07:26 Bite Cells Not Reportable 08/11/21 07:26 Crenated Cell Not Reportable 08/11/21 07:26 Elliptocytes Not Reportable 08/11/21 07:26 Acanthocytes (Spur) Not Reportable 08/11/21 07:26 Rouleaux Not Reportable 08/11/21 07:26 Hemoglobin C Crystals Not Reportable 08/11/21 07:26 Schistocytes Not Reportable 08/11/21 07:26 Malaria parasites Not Reportable 08/11/21 07:26 Eliot Bodies Not Reportable 08/11/21 07:26 Hem Pathologist Commnt No 08/11/21 07:26 PT 16.0 Sec. (12.2-14.9) H 08/09/21 23:04 INR 1.15 (0.87-1.13) H 08/09/21 23:04 Sodium 142 mmol/L (137-145) D 08/11/21 07:26 Potassium 3.1 mmol/L (3.6-5.0) L D 08/11/21 07:26 Chloride 110.5 mmol/L (98-107) H 08/11/21 07:26 Carbon Dioxide 17 mmol/L (22-30) L D 08/11/21 07:26 Anion Gap 18 mmol/L 08/11/21 07:26 BUN 3 mg/dL (9-20) L 08/11/21 07:26 Creatinine 0.7 mg/dL (0.8-1.3) L 08/11/21 07:26 Estimated GFR > 60 ml/min 08/11/21 07:26 BUN/Creatinine Ratio 4 % 08/11/21 07:26 Glucose 220 mg/dL (75-100) H 08/11/21 07:26 Calcium 9.5 mg/dL (8.4-10.2) 08/11/21 07:26 Magnesium 1.90 mg/dL (1.7-2.3) 08/09/21 23:04 Iron 56 ug/dL (49-181) 08/10/21 05:32 TIBC 267 mcg/dL (250-450) 08/10/21 05:32 % Saturation 20.97 % 08/10/21 05:32 Transferrin 216 mg/dl (180-329) 08/10/21 05:32 Total Bilirubin 1.60 mg/dL (0.1-1.2) H 08/11/21 07:26 Direct Bilirubin 0.6 mg/dL (0-0.2) H 08/09/21 23:04 Indirect Bilirubin 0.7 mg/dL 08/09/21 23:04 AST 125 units/L (5-40) H 08/11/21 07:26 ALT 68 units/L (7-56) H 08/11/21 07:26 Alkaline Phosphatase 90 units/L (35-129) 08/11/21 07:26 Total Creatine Kinase 86 units/L (55-170) 08/09/21 23:04 Total Protein 7.2 g/dL (6.3-8.2) 08/11/21 07:26 Albumin 3.9 g/dL (3.9-5) 08/11/21 07:26 Albumin/Globulin Ratio 1.2 % 08/11/21 07:26 Lipase 492 units/L (13-60) H 08/11/21 07:26 Vitamin B12 1189 pg/mL (211-911) H 08/10/21 05:32 Urine Color Yellow (Yellow) 08/10/21 01:25 Urine Turbidity Clear (Clear) 08/10/21 01:25 Urine pH 5.0 (5.0-7.0) 08/10/21 01:25 Ur Specific Williams 1.028 (1.003-1.030) 08/10/21 01:25 Urine Protein 30 mg/dl mg/dL (Negative) 08/10/21 01:25 Urine Glucose (UA) 50 mg/dL (Negative) 08/10/21 01:25 Urine Ketones 80 mg/dL (Negative) 08/10/21 01:25 Urine Blood Sm (Negative) 08/10/21 01:25 Urine Nitrite Neg (Negative) 08/10/21 01:25 Urine Bilirubin Neg (Negative) 08/10/21 01:25 Urine Urobilinogen < 2.0 mg/dL (<2.0) 08/10/21 01:25 Ur Leukocyte Esterase Neg (Negative) 08/10/21 01:25 Urine WBC (Auto) 1.0 /HPF (0.0-6.0) 08/10/21 01:25 Urine RBC (Auto) 7.0 /HPF (0.0-6.0) 08/10/21 01:25 U Epithel Cells (Auto) 6.0 /HPF (0-13.0) 08/10/21 01:25 Hyaline Casts 13 /LPF 08/10/21 01:25 Urine Mucus Few /HPF 08/10/21 01:25 Plasma/Serum Alcohol < 0.01 % (0-0.07) 08/09/21 23:04 P[place]ton/IV: Voiding Method Toilet Active Medications - Current Medications Current Medications: Generic Name Dose Route Start Last Admin Trade Name Freq PRN Reason Stop Dose Admin Acetaminophen 650 mg 08/10/21 01:11 Acetaminophen 325 Mg Tab PO Q4H PRN Pain MILD(1-3)/Fever >100.5/MATIAS Heparin Sodium (Porcine) 5,000 unit 08/10/21 10:00 08/11/21 10:54 Heparin 5,000 Unit/1 Ml Vial SUB-Q 5,000 unit Q12HR TINO Administration Hydromorphone HCl 1 mg 08/10/21 02:59 Hydromorphone 1 Mg/1 Ml Inj IV Q2H PRN Pain , Severe (7-10) Dextrose/Sodium Chloride 1,000 mls @ 100 mls/hr 08/10/21 02:00 08/11/21 04:55 D5ns IV 100 mls/hr DIRECT TINO Administration Lorazepam 2 mg 08/09/21 22:26 08/11/21 03:28 Lorazepam 2 Mg/Ml Vial IV 2 mg Q1HR PRN Administration CIWA-Ar 8-15 Lorazepam 4 mg 08/09/21 22:26 Lorazepam 2 Mg/Ml Vial IV Q1HR PRN CIWA-Ar 16-25 Lorazepam 4 mg 08/09/21 22:26 08/10/21 09:21 Lorazepam 2 Mg/Ml Vial IV 4 mg Q15MIN PRN Administration CIWA-Ar >25 Metoclopramide HCl 10 mg 08/10/21 01:21 08/10/21 09:19 Metoclopramide 10 Mg/2 Ml Inj IV 10 mg Q6H PRN Administration Nausea And Vomiting Morphine Sulfate 2 mg 08/10/21 01:21 08/11/21 06:12 Morphine 2 Mg/1 Ml Inj IV 2 mg Q4H PRN Administration Pain, Moderate (4-6) Ondansetron HCl 4 mg 08/10/21 01:11 08/10/21 22:36 Ondansetron 4 Mg/2 Ml Inj IV 4 mg Q3H PRN Administration Nausea And Vomiting Sodium Chloride 10 ml 08/10/21 10:00 08/11/21 10:55 Sodium Chloride 0.9% 10 Ml Flush Syringe IV 10 ml BID TINO Administration Sodium Chloride 10 ml 08/10/21 01:11 Sodium Chloride 0.9% 10 Ml Flush Syringe IV PRN PRN LINE FLUSH Nutrition/Malnutrition Assess - Dietary Evaluation Nutrition/Malnutrition Findings: Nutrition Notes Start: 08/10/21 09:30 Freq: Status: Active Protocol: Document 08/10/21 09:30 GALEN (Rec: 08/10/21 09:37 [id number] Nutrition Notes 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 Pt admitted with c/o severe abdominal pain with N/V for past two days [employer]. Pt currently on CIWA protocol. Burn Absent Trauma Absent GI Symptoms Nausea,Vomiting Minimum of two criteria No #1 Nutrition Diagnosis Inadequate oral intake Etiology acute pancreatitis As Evidenced by Signs and Symptoms pt NPO; c/o abdominal pain with N/V Is patient on ventilator? No Is Patient Ambulatory and/or Out of Bed Yes REE-([facility]-ambulatory/OOB) [ 2319.369 [id number]] Calculation Used for Recommendations Jovanni Ward Additional Notes Pro needs 0.8-1g/k-87g/ day Fluid needs 1ml/kcal Nutrition Intervention Change Diet Order: Advance diet when medically feasible Goal #1 Diet advancement to meet nutrient needs Anticipated Discharge Needs: CHO-controlled, low fat diet Follow-Up By: 08/12/21 Additional Comments F/U: diet advancement
--- NOTE | 2021-08-11 19:18 | Event Note ---
Date: 08/11/21 I called [facility] physician Dr. Taylor at [phone] and discussed in detail patient's condition, tests and reports, treatment plan, Dr. Graves had many questions, answered all of them, she informed me that they do not have any beds available, advised to continue management here in the hospital at this point, and that she would follow-up daily to check on the patient's progress and inform if they have any treatment or any transfer plans to their facility if needed. We will continue current management and adjust as needed.
[2021-08-11] MEDS: POTASSIUM CHLORIDE 10 MEQ 10 MEQ/100 ML BAG IV SCH ×2 (22:15→23:53)
[2021-08-12] MEDS: POTASSIUM CHLORIDE 10 MEQ 10 MEQ/100 ML BAG IV SCH ×2 (00:42→04:01)
[2021-08-12] MEDS: HYDROmorphone 1 MG/1 ML INJ IV PRN ×2 (06:15→15:45)
[2021-08-12 07:55] LABS: Basophils % (Auto) 0.1 % (0.0-1.8); Eosinophils % (Auto) 0.1 % (0.0-4.3); Hematocrit 29.4 % (35.5-45.6); Lymphocytes # (Auto) 1.2 K/mm3 (1.2-5.4); Lymphocytes % (Auto) 9.8 % (13.4-35.0); Mean Corpuscular HGB Conc 34 % (32-34); Mean Corpuscular Volume 102 fl (84-94); Monocytes % (Auto) 8.3 % (0.0-7.3); Platelet Count 162 K/mm3 (140-440); Red Blood Count 2.87 M/mm3 (3.65-5.03); Red Cell Distribution Width 14.7 % (13.2-15.2)
[2021-08-12 08:18] LABS: Alanine Aminotransferase 62 units/L (7-56); Blood Urea Nitrogen 4 mg/dL (9-20); Calcium 8.5 mg/dL (8.4-10.2); Hemolysis Index 32
[2021-08-12 08:32] LABS: BUN/Creatinine Ratio 8
--- NOTE | 2021-08-12 09:21 | Progress Note ---
Assessment and Plan Assessment and plan: --Hypokalemia; Replenished with KCl monitor electrolytes --Hypomagnesemia Replenished with IV mag sulfate 4 g Monitor electrolytes --Hypophosphatemia Replenished with phosphate Monitor electrolytes -- Acute pancreatitis Current Visit: Yes Status: Acute Possible alcohol induced versus gallstone induced. Patient has multiple gallstones without acute cholecystitis Lipase is trending down [phone] Patient tolerating clear liquids Advance diet mechanical soft today -- Metabolic acidosis Current Visit: Yes Status: Acute Secondary to persistent vomiting IV fluids for now closely monitor -- Dehydration Current Visit: Yes Status: Acute IV fluids plenty oral fluids -- EtOH dependence Current Visit: Yes Status: Acute CIWA protocol initiated Strongly advised to quit alcohol intake Plan seek alcohol rehabilitation/alcohol Anonymous support group --Cholelithiasis Current Visit: Yes Status: Chronic Cholelithiasis without cholecystitis Surgery consult if needed -- Transaminitis/alcohol hepatitis Current Visit: Yes Status: Acute Check hepatitis profile Possible alcohol induced Possible gallstone induced -- Hypocalcemia Current Visit: Yes Status: Acute IV calcium given Caltrate when the pancreatitis resolves -- Anemia Current Visit: Yes Status: Chronic Anemia work-up Serum folic acid and B12 levels and iron levels --Malnutrition Current Visit: Yes Status: Chronic Dietary supplements when patient starts eating --Monitor for alcohol withdrawal symptoms; CIWA protocol as needed[patient is requiring very minimal Ativan] DC CIWA protocol, IV Ativan as needed for agitation Physical therapy occupational therapy DC planning per case management -- DVT prophylaxis Current Visit: Yes Status: Acute On heparin and GI prophylaxis -- Advance care planning Current Visit: Yes Status: Acute Disease education conducted, care plan discussed, diagnosis discussed, prognosis discussed. Patient is full code./Patient acknowledged understanding and agreement with care plan +30 minutes. We will closely monitor patient and adjust the management as needed Plan of care reviewed with the patient and his sister at the bedside Reviewed with the nurse and the case management We will contact [place] physician and update patient's condition tests and re ports and treatment plan. History Interval history: I seen and examined the patient at the bedside Patient's chart and medications reviewed Patient feels slightly better no new complaints Sleeping easily awakens When last 24 hours he required 2 doses of Ativan No tremulousness or agitation Vital signs reviewed Hospitalist Physical - Constitutional Vitals: Temp Pulse Resp BP Pulse Ox 99.6 F 125 H 22 139/100 98 08/12/21 05:26 08/12/21 05:26 08/12/21 05:26 08/12/21 05:26 08/12/21 05:26 General appearance: Present: mild distress, well-nourished, other (No tremulousness or agitation) - EENT Eyes: Present: PERRL, EOM intact ENT: hearing intact, clear oral mucosa - Neck Neck: Present: supple, normal ROM - Respiratory Respiratory effort: normal Respiratory: bilateral: diminished, negative: rales, rhonchi, wheezing - Cardiovascular Rhythm: regular Heart Sounds: Present: S1 & S2 - Extremities Extremities: no ischemia, No edema - Abdominal General gastrointestinal: soft, non-tender, non-distended, normal bowel sounds - Integumentary Integumentary: Present: clear, warm - Psychiatric Psychiatric: appropriate mood/affect, cooperative - Neurologic Neurologic: CNII-XII intact, moves all extremities Results - Labs CBC & Chem 7: 08/12/21 07:39 08/12/21 07:39 Labs: Laboratory Last Values WBC 11.9 K/mm3 (4.5-11.0) H 08/12/21 07:39 RBC 2.87 M/mm3 (3.65-5.03) L 08/12/21 07:39 Hgb 10.0 gm/dl (11.8-15.2) L 08/12/21 07:39 Hct 29.4 % (35.5-45.6) L 08/12/21 07:39 MCV 102 fl (84-94) H 08/12/21 07:39 MCH 35 pg (28-32) H 08/12/21 07:39 MCHC 34 % (32-34) 08/12/21 07:39 RDW 14.7 % (13.2-15.2) 08/12/21 07:39 Plt Count 162 K/mm3 (140-440) 08/12/21 07:39 Lymph % (Auto) 9.8 % (13.4-35.0) L 08/12/21 07:39 [place] % (Auto) 8.3 % (0.0-7.3) H 08/12/21 07:39 Eos % (Auto) 0.1 % (0.0-4.3) 08/12/21 07:39 Baso % (Auto) 0.1 % (0.0-1.8) 08/12/21 07:39 Lymph # (Auto) 1.2 K/mm3 (1.2-5.4) 08/12/21 07:39 [place] # (Auto) 1.0 K/mm3 (0.0-0.8) H 08/12/21 07:39 Eos # (Auto) 0.0 K/mm3 (0.0-0.4) 08/12/21 07:39 Baso # (Auto) 0.0 K/mm3 (0.0-0.1) 08/12/21 07:39 Add Manual Diff Complete 08/11/21 07:26 Total Counted 100 08/11/21 07:26 Seg Neutrophils % 81.7 % (40.0-70.0) H 08/12/21 07:39 Seg Neuts % (Manual) 89.0 % (40.0-70.0) H 08/11/21 07:26 Band Neutrophils % 5.0 % 08/11/21 07:26 Lymphocytes % (Manual) 3.0 % (13.4-35.0) L 08/11/21 07:26 Reactive Lymphs % (Man) 0 % 08/11/21 07:26 Monocytes % (Manual) 3.0 % (0.0-7.3) 08/11/21 07:26 Eosinophils % (Manual) 0 % (0.0-4.3) 08/11/21 07:26 Basophils % (Manual) 0 % (0.0-1.8) 08/11/21 07:26 Metamyelocytes % 0 % 08/11/21 07:26 Myelocytes % 0 % 08/11/21 07:26 Promyelocytes % 0 % 08/11/21 07:26 Blast Cells % 0 % 08/11/21 07:26 Nucleated RBC % Not Reportable 08/11/21 07:26 Seg Neutrophils # 9.7 K/mm3 (1.8-7.7) H 08/12/21 07:39 Seg Neutrophils # Man 10.6 K/mm3 (1.8-7.7) H 08/11/21 07:26 Band Neutrophils # 0.6 K/mm3 08/11/21 07:26 Lymphocytes # (Manual) 0.4 K/mm3 (1.2-5.4) L 08/11/21 07:26 Abs React Lymphs (Man) 0.0 K/mm3 08/11/21 07:26 Monocytes # (Manual) 0.4 K/mm3 (0.0-0.8) 08/11/21 07:26 Eosinophils # (Manual) 0.0 K/mm3 (0.0-0.4) 08/11/21 07:26 Basophils # (Manual) 0.0 K/mm3 (0.0-0.1) 08/11/21 07:26 Metamyelocytes # 0.0 K/mm3 08/11/21 07:26 Myelocytes # 0.0 K/mm3 08/11/21 07:26 Promyelocytes # 0.0 K/mm3 08/11/21 07:26 Blast Cells # 0.0 K/mm3 08/11/21 07:26 WBC Morphology Not Reportable 08/11/21 07:26 Hypersegmented Neuts Not Reportable 08/11/21 07:26 Hyposegmented Neuts Not Reportable 08/11/21 07:26 Hypogranular Neuts Not Reportable 08/11/21 07:26 Smudge Cells Not Reportable 08/11/21 07:26 Toxic Granulation 2+ 08/11/21 07:26 Toxic Vacuolation Not Reportable 08/11/21 07:26 Dohle Bodies Not Reportable 08/11/21 07:26 Pelger-Huet Anomaly Not Reportable 08/11/21 07:26 Srinivasan Rods Not Reportable 08/11/21 07:26 Platelet Estimate Consistent w auto 08/11/21 07:26 Clumped Platelets Not Reportable 08/11/21 07:26 Plt Clumps, EDTA Not Reportable 08/11/21 07:26 Large Platelets Not Reportable 08/11/21 07:26 Giant Platelets Not Reportable 08/11/21 07:26 Platelet Satelliting Not Reportable 08/11/21 07:26 Plt Morphology Comment Not Reportable 08/11/21 07:26 RBC Morphology Normal 08/11/21 07:26 Dimorphic RBCs Not Reportable 08/11/21 07:26 Polychromasia Not Reportable 08/11/21 07:26 Hypochromasia Not Reportable 08/11/21 07:26 Poikilocytosis Not Reportable 08/11/21 07:26 Anisocytosis Not Reportable 08/11/21 07:26 Microcytosis Not Reportable 08/11/21 07:26 Macrocytosis Not Reportable 08/11/21 07:26 Spherocytes Not Reportable 08/11/21 07:26 Pappenheimer Bodies Not Reportable 08/11/21 07:26 Sickle Cells Not Reportable 08/11/21 07:26 Target Cells Not Reportable 08/11/21 07:26 Tear Drop Cells Not Reportable 08/11/21 07:26 Ovalocytes Not Reportable 08/11/21 07:26 Helmet Cells Not Reportable 08/11/21 07:26 [place] Bodies Not Reportable 08/11/21 07:26 [place] Rings Not Reportable 08/11/21 07:26 [place] Cells Not Reportable 08/11/21 07:26 Bite Cells Not Reportable 08/11/21 07:26 Crenated Cell Not Reportable 08/11/21 07:26 Elliptocytes Not Reportable 08/11/21 07:26 Acanthocytes (Spur) Not Reportable 08/11/21 07:26 Rouleaux Not Reportable 08/11/21 07:26 Hemoglobin C Crystals Not Reportable 08/11/21 07:26 Schistocytes Not Reportable 08/11/21 07:26 Malaria parasites Not Reportable 08/11/21 07:26 [place] Bodies Not Reportable 08/11/21 07:26 Hem Pathologist Commnt No 08/11/21 07:26 PT 16.0 Sec. (12.2-14.9) H 08/09/21 23:04 INR 1.15 (0.87-1.13) H 08/09/21 23:04 Sodium 138 mmol/L (137-145) 08/12/21 07:39 Potassium 3.0 mmol/L (3.6-5.0) L 08/12/21 07:39 Chloride 108.0 mmol/L (98-107) H 08/12/21 07:39 Carbon Dioxide 17 mmol/L (22-30) L 08/12/21 07:39 Anion Gap 16 mmol/L 08/12/21 07:39 BUN 4 mg/dL (9-20) L 08/12/21 07:39 Creatinine 0.5 mg/dL (0.8-1.3) L 08/12/21 07:39 Estimated GFR > 60 ml/min 08/12/21 07:39 BUN/Creatinine Ratio 8 % 08/12/21 07:39 Glucose 254 mg/dL (75-100) H 08/12/21 07:39 Calcium 8.5 mg/dL (8.4-10.2) 08/12/21 07:39 Phosphorus 1.00 mg/dL (2.5-4.5) L 08/12/21 07:39 Magnesium 1.10 mg/dL (1.7-2.3) L 08/12/21 07:39 Iron 56 ug/dL (49-181) 08/10/21 05:32 TIBC 267 mcg/dL (250-450) 08/10/21 05:32 % Saturation 20.97 % 08/10/21 05:32 Transferrin 216 mg/dl (180-329) 08/10/21 05:32 Total Bilirubin 1.40 mg/dL (0.1-1.2) H 08/12/21 07:39 Direct Bilirubin 0.6 mg/dL (0-0.2) H 08/09/21 23:04 Indirect Bilirubin 0.7 mg/dL 08/09/21 23:04 AST 112 units/L (5-40) H 08/12/21 07:39 ALT 62 units/L (7-56) H 08/12/21 07:39 Alkaline Phosphatase 84 units/L (35-129) 08/12/21 07:39 Total Creatine Kinase 86 units/L (55-170) 08/09/21 23:04 Total Protein 6.3 g/dL (6.3-8.2) 08/12/21 07:39 Albumin 3.0 g/dL (3.9-5) L 08/12/21 07:39 Albumin/Globulin Ratio 0.9 % 08/12/21 07:39 Lipase 92 units/L (13-60) H 08/12/21 07:39 Vitamin B12 1189 pg/mL (211-911) H 08/10/21 05:32 Urine Color Yellow (Yellow) 08/10/21 01:25 Urine Turbidity Clear (Clear) 08/10/21 01:25 Urine pH 5.0 (5.0-7.0) 08/10/21 01:25 Ur Specific [place] 1.028 (1.003-1.030) 08/10/21 01:25 Urine Protein 30 mg/dl mg/dL (Negative) 08/10/21 01:25 Urine Glucose (UA) 50 mg/dL (Negative) 08/10/21 01:25 Urine Ketones 80 mg/dL (Negative) 08/10/21 01:25 Urine Blood Sm (Negative) 08/10/21 01:25 Urine Nitrite Neg (Negative) 08/10/21 01:25 Urine Bilirubin Neg (Negative) 08/10/21 01:25 Urine Urobilinogen < 2.0 mg/dL (<2.0) 08/10/21 01:25 Ur Leukocyte Esterase Neg (Negative) 08/10/21 01:25 Urine WBC (Auto) 1.0 /HPF (0.0-6.0) 08/10/21 01:25 Urine RBC (Auto) 7.0 /HPF (0.0-6.0) 08/10/21 01:25 U Epithel Cells (Auto) 6.0 /HPF (0-13.0) 08/10/21 01:25 Hyaline Casts 13 /LPF 08/10/21 01:25 Urine Mucus Few /HPF 08/10/21 01:25 Plasma/Serum Alcohol < 0.01 % (0-0.07) 08/09/21 23:04 [place]/IV: Voiding Method Toilet Active Medications - Current Medications Current Medications: Generic Name Dose Route Start Last Admin Trade Name Freq PRN Reason Stop Dose Admin Acetaminophen 650 mg 08/10/21 01:11 Acetaminophen 325 Mg Tab PO Q4H PRN Pain MILD(1-3)/Fever >100.5/MATIAS Folic Acid 1 mg 08/12/21 10:00 Folic Acid 1 Mg Tab PO QDAY TINO Heparin Sodium (Porcine) 5,000 unit 08/10/21 10:00 08/11/21 21:38 Heparin 5,000 Unit/1 Ml Vial SUB-Q 5,000 unit Q12HR TINO Administration Hydromorphone HCl 1 mg 08/10/21 02:59 08/12/21 06:15 Hydromorphone 1 Mg/1 Ml Inj IV 1 mg Q2H PRN Administration Pain , Severe (7-10) Dextrose/Sodium Chloride 1,000 mls @ 100 mls/hr 08/10/21 02:00 08/11/21 21:37 D5ns IV 100 mls/hr DIRECT TINO Administration Magnesium Sulfate 4 gm in 100 mls @ 25 mls/hr 08/12/21 10:00 Magnesium Sulfate 4gm/100ml IV 08/12/21 13:59 ONCE ONE Lorazepam 2 mg 08/09/21 22:26 08/11/21 03:28 Lorazepam 2 Mg/Ml Vial IV 2 mg Q1HR PRN Administration CIWA-Ar 8-15 Lorazepam 4 mg 08/09/21 22:26 08/11/21 23:52 Lorazepam 2 Mg/Ml Vial IV 4 mg Q1HR PRN Administration CIWA-Ar 16-25 Lorazepam 4 mg 08/09/21 22:26 08/10/21 09:21 Lorazepam 2 Mg/Ml Vial IV 4 mg Q15MIN PRN Administration CIWA-Ar >25 Metoclopramide HCl 10 mg 08/10/21 01:21 08/10/21 09:19 Metoclopramide 10 Mg/2 Ml Inj IV 10 mg Q6H PRN Administration Nausea And Vomiting Morphine Sulfate 2 mg 08/10/21 01:21 08/11/21 06:12 Morphine 2 Mg/1 Ml Inj IV 2 mg Q4H PRN Administration Pain, Moderate (4-6) Ondansetron HCl 4 mg 08/10/21 01:11 08/10/21 22:36 Ondansetron 4 Mg/2 Ml Inj IV 4 mg Q3H PRN Administration Nausea And Vomiting Potassium Chloride 40 meq 08/12/21 09:18 Potassium Chloride Er 20 Meq Tab PO 08/12/21 09:19 ONCE ONE Sodium Chloride 10 ml 08/10/21 10:00 08/11/21 21:38 Sodium Chloride 0.9% 10 Ml Flush Syringe IV 10 ml BID TINO Administration Sodium Chloride 10 ml 08/10/21 01:11 Sodium Chloride 0.9% 10 Ml Flush Syringe IV PRN PRN LINE FLUSH Thiamine HCl 100 mg 08/12/21 10:00 Thiamine 100 Mg Tab PO QDAY TINO Nutrition/Malnutrition Assess - Dietary Evaluation Nutrition/Malnutrition Findings: Nutrition Notes Start: 08/10/21 09:30 Freq: Status: Active Protocol: Document 08/10/21 09:30 GALEN (Rec: 08/10/21 09:37 GALEN [email or web address]) Nutrition Notes 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 Pt currently on CIWA protocol. Burn Absent Trauma Absent GI Symptoms Nausea,Vomiting Minimum of two criteria No #1 Nutrition Diagnosis Inadequate oral intake Etiology acute pancreatitis As Evidenced by Signs and Symptoms pt NPO; c/o abdominal pain with N/V Is patient on ventilator? No Is Patient Ambulatory and/or Out of Bed Yes REE-(Garland-St. Jeor-ambulatory/OOB) [ 2319.369 [id number]] Calculation Used for Recommendations [place]land-St Jeor Additional Notes Pro needs 0.8-1g/k-87g/ day Fluid needs 1ml/kcal Nutrition Intervention Change Diet Order: Advance diet when medically feasible Goal #1 Diet advancement to meet nutrient needs Anticipated Discharge Needs: CHO-controlled, low fat diet Follow-Up By: 08/12/21 Additional Comments F/U: diet advancement
[2021-08-12] MEDS ORDERED: POTASSIUM CHLORIDE ER 20 MEQ TAB PO NR (09:30)
[2021-08-12] MEDS ORDERED: MAGNESIUM SULFATE 4 GM/100 ML BAG IV ONE (10:00)
[2021-08-12] MEDS: MORPHINE 2 MG/1 ML INJ IV PRN (10:26)
[2021-08-12] MEDS: K-PHOS NEUTRAL 250 MG TAB PO SCH ×3 (10:26→21:08)
[2021-08-12] MEDS: THIAMINE 100 MG TAB PO SCH (10:27)
[2021-08-12] MEDS: FOLIC ACID 1 MG TAB PO SCH (10:32)
[2021-08-12] MEDS: HEPARIN 5,000 UNIT/1 ML VIAL SUB-Q SCH ×2 (10:33→21:08)
[2021-08-12] MEDS: LORazepam 2 MG/ML VIAL IV PRN (10:34)
[2021-08-12] MEDS ORDERED: LORazepam 2 MG/ML VIAL IV PRN (15:57)
--- NOTE | 2021-08-12 16:23 | Event Note ---
Date: 08/12/21 I spoke to [place] physician Dr. Groves at [phone] and discussed in detail patient's condition, mild improvement, changes in treatment plan, Advancement of diet, improvement of pancreatitis, and recommendations for physical therapy to evaluation and treat. I also informed the patient had multiple electrolyte imbalances which are being corrected, and sent all her questions. Will continue to update patient's condition periodically with the [place] physician.
[2021-08-12 19:48] LABS: Hepatitis B Surface Antigen Non-Reactive (Negative); Hepatitis C Virus Antibody Non-Reactive (NonReactive)
[2021-08-13] MEDS: METOCLOPRAMIDE 10 MG/2 ML INJ IV PRN (00:29)
[2021-08-13] MEDS: HYDROmorphone 1 MG/1 ML INJ IV PRN (00:33)
[2021-08-13] MEDS: ACETAMINOPHEN 325 MG TAB PO PRN ×2 (04:06→16:40)
[2021-08-13] MEDS: THIAMINE 100 MG TAB PO SCH (10:00)
[2021-08-13 10:22] LABS: Basophils % (Auto) 0.3 % (0.0-1.8); Eosinophils % (Auto) 0.3 % (0.0-4.3); Hematocrit 27.9 % (35.5-45.6); Hemoglobin 9.8 gm/dl (11.8-15.2); Lymphocytes # (Auto) 1.7 K/mm3 (1.2-5.4); Lymphocytes % (Auto) 18.2 % (13.4-35.0); Mean Corpuscular HGB Conc 35 % (32-34); Mean Corpuscular Volume 100 fl (84-94); Monocytes # (Auto) 1.1 K/mm3 (0.0-0.8); Platelet Count 192 K/mm3 (140-440); Red Blood Count 2.78 M/mm3 (3.65-5.03); Red Cell Distribution Width 14.7 % (13.2-15.2)
[2021-08-13 10:40] LABS: Alanine Aminotransferase 62 units/L (7-56); Albumin 3.3 g/dL (3.9-5); Blood Urea Nitrogen 4 mg/dL (9-20); Calcium 8.3 mg/dL (8.4-10.2); Hemolysis Index 6
[2021-08-13 10:41] LABS: BUN/Creatinine Ratio 8
[2021-08-13] MEDS: MORPHINE 2 MG/1 ML INJ IV PRN (10:50)
[2021-08-13] MEDS: HEPARIN 5,000 UNIT/1 ML VIAL SUB-Q SCH ×2 (10:50→22:00)
[2021-08-13] MEDS: FOLIC ACID 1 MG TAB PO SCH (10:50)
[2021-08-13] MEDS: chlorproMAZINE 25 MG TAB PO PRN ×2 (10:52→16:39)
[2021-08-13] MEDS: K-PHOS NEUTRAL 250 MG TAB PO SCH ×2 (16:38→22:00)
[2021-08-13] MEDS ORDERED: KETOROLAC 30 MG/1 ML INJ IV PRN (19:22)
[2021-08-13] MEDS ORDERED: POTASSIUM PHOSPHATE 45 MMOL in SODIUM CHLORIDE 0.9% 500 ML 500 ML IV ONE (19:39)
[2021-08-13] MEDS ORDERED: MAGNESIUM SULFATE 2 GM/50 ML BAG IV ONE (19:39)
--- NOTE | 2021-08-13 19:44 | Progress Note ---
Assessment and Plan Assessment and plan: --Hypokalemia; hypophosphatemia Replenished with IV K-Phos Monitor electrolytes --Hypomagnesemia Replenished with IV mag sulfate 2 g Monitor electrolytes -- Acute pancreatitis Current Visit: Yes Status: Acute Possible alcohol induced versus gallstone induced. Patient has multiple gallstones without acute cholecystitis Lipase is trending down [phone] Patient tolerating clear liquids Advance diet mechanical soft today -- Metabolic acidosis Current Visit: Yes Status: Acute Secondary to persistent vomiting IV fluids for now closely monitor -- Dehydration Current Visit: Yes Status: Acute IV fluids plenty oral fluids -- EtOH dependence Current Visit: Yes Status: Acute CIWA protocol initiated Strongly advised to quit alcohol intake Plan seek alcohol rehabilitation/alcohol Anonymous support group --Cholelithiasis Current Visit: Yes Status: Chronic Cholelithiasis without cholecystitis Surgery consult if needed -- Transaminitis/alcohol hepatitis Current Visit: Yes Status: Acute Check hepatitis profile Possible alcohol induced Possible gallstone induced -- Hypocalcemia Current Visit: Yes Status: Acute IV calcium given Caltrate when the pancreatitis resolves -- Anemia Current Visit: Yes Status: Chronic Anemia work-up Serum folic acid and B12 levels and iron levels --Malnutrition Current Visit: Yes Status: Chronic Dietary supplements when patient starts eating --Monitor for alcohol withdrawal symptoms; CIWA protocol as needed[patient is requiring very minimal Ativan] DC CIWA protocol, IV Ativan as needed for agitation Physical therapy occupational therapy DC planning per case management -- DVT prophylaxis Current Visit: Yes Status: Acute On heparin and GI prophylaxis -- Advance care planning Current Visit: Yes Status: Acute Disease education conducted, care plan discussed, diagnosis discussed, prognosis discussed. Patient is full code./Patient acknowledged understanding and agreement with care plan +30 minutes. We will closely monitor patient and adjust the management as needed Plan of care reviewed with the patient and his sister at the bedside Reviewed with the nurse and the case management We will contact [place] physician and update patient's condition tests and reports and treatment plan. PT evaluated the patient, recommend home health PT with 24-hour supervision at home Versus subacute rehab DC planning per case management History Interval history: Have seen and examined the patient at the bedside Patient is sleeping easily awakens Vital signs noted Very little tremulousness Patient required 2 doses of Ativan Vital signs noted Hospitalist Physical - Constitutional Vitals: Temp Pulse Resp BP Pulse Ox 100.4 F H 99 H 18 101/63 98 08/13/21 16:28 08/13/21 16:28 08/13/21 16:28 08/13/21 16:28 08/13/21 16:28 General appearance: Present: no acute distress, well-nourished, other (No tremulousness or agitation, lethargy[probably due to medication]) - EENT Eyes: Present: PERRL, EOM intact - Neck Neck: Present: supple, normal ROM - Respiratory Respiratory effort: normal Respiratory: bilateral: diminished, negative: rales, rhonchi, wheezing - Cardiovascular Rhythm: regular Heart Sounds: Present: S1 & S2 - Extremities Extremities: no ischemia, No edema - Abdominal General gastrointestinal: soft, non-tender, non-distended, normal bowel sounds - Integumentary Integumentary: Present: clear, warm - Psychiatric Psychiatric: other (Lethargy responds appropriately) - Neurologic Neurologic: moves all extremities Results - Labs CBC & Chem 7: 08/13/21 09:38 08/13/21 09:38 Labs: Laboratory Last Values WBC 9.1 K/mm3 (4.5-11.0) 08/13/21 09:38 RBC 2.78 M/mm3 (3.65-5.03) L 08/13/21 09:38 Hgb 9.8 gm/dl (11.8-15.2) L 08/13/21 09:38 Hct 27.9 % (35.5-45.6) L 08/13/21 09:38 MCV 100 fl (84-94) H 08/13/21 09:38 MCH 35 pg (28-32) H 08/13/21 09:38 MCHC 35 % (32-34) H 08/13/21 09:38 RDW 14.7 % (13.2-15.2) 08/13/21 09:38 Plt Count 192 K/mm3 (140-440) 08/13/21 09:38 Lymph % (Auto) 18.2 % (13.4-35.0) 08/13/21 09:38 [place] % (Auto) 12.0 % (0.0-7.3) H 08/13/21 09:38 Eos % (Auto) 0.3 % (0.0-4.3) 08/13/21 09:38 Baso % (Auto) 0.3 % (0.0-1.8) 08/13/21 09:38 Lymph # (Auto) 1.7 K/mm3 (1.2-5.4) 08/13/21 09:38 [place] # (Auto) 1.1 K/mm3 (0.0-0.8) H 08/13/21 09:38 Eos # (Auto) 0.0 K/mm3 (0.0-0.4) 08/13/21 09:38 Baso # (Auto) 0.0 K/mm3 (0.0-0.1) 08/13/21 09:38 Add Manual Diff Complete 08/11/21 07:26 Total Counted 100 08/11/21 07:26 Seg Neutrophils % 69.2 % (40.0-70.0) 08/13/21 09:38 Seg Neuts % (Manual) 89.0 % (40.0-70.0) H 08/11/21 07:26 Band Neutrophils % 5.0 % 08/11/21 07:26 Lymphocytes % (Manual) 3.0 % (13.4-35.0) L 08/11/21 07:26 Reactive Lymphs % (Man) 0 % 08/11/21 07:26 Monocytes % (Manual) 3.0 % (0.0-7.3) 08/11/21 07:26 Eosinophils % (Manual) 0 % (0.0-4.3) 08/11/21 07:26 Basophils % (Manual) 0 % (0.0-1.8) 08/11/21 07:26 Metamyelocytes % 0 % 08/11/21 07:26 Myelocytes % 0 % 08/11/21 07:26 Promyelocytes % 0 % 08/11/21 07:26 Blast Cells % 0 % 08/11/21 07:26 Nucleated RBC % Not Reportable 08/11/21 07:26 Seg Neutrophils # 6.3 K/mm3 (1.8-7.7) 08/13/21 09:38 Seg Neutrophils # Man 10.6 K/mm3 (1.8-7.7) H 08/11/21 07:26 Band Neutrophils # 0.6 K/mm3 08/11/21 07:26 Lymphocytes # (Manual) 0.4 K/mm3 (1.2-5.4) L 08/11/21 07:26 Abs React Lymphs (Man) 0.0 K/mm3 08/11/21 07:26 Monocytes # (Manual) 0.4 K/mm3 (0.0-0.8) 08/11/21 07:26 Eosinophils # (Manual) 0.0 K/mm3 (0.0-0.4) 08/11/21 07:26 Basophils # (Manual) 0.0 K/mm3 (0.0-0.1) 08/11/21 07:26 Metamyelocytes # 0.0 K/mm3 08/11/21 07:26 Myelocytes # 0.0 K/mm3 08/11/21 07:26 Promyelocytes # 0.0 K/mm3 08/11/21 07:26 Blast Cells # 0.0 K/mm3 08/11/21 07:26 WBC Morphology Not Reportable 08/11/21 07:26 Hypersegmented Neuts Not Reportable 08/11/21 07:26 Hyposegmented Neuts Not Reportable 08/11/21 07:26 Hypogranular Neuts Not Reportable 08/11/21 07:26 Smudge Cells Not Reportable 08/11/21 07:26 Toxic Granulation 2+ 08/11/21 07:26 Toxic Vacuolation Not Reportable 08/11/21 07:26 Dohle Bodies Not Reportable 08/11/21 07:26 Pelger-Huet Anomaly Not Reportable 08/11/21 07:26 Srinivasan Rods Not Reportable 08/11/21 07:26 Platelet Estimate Consistent w auto 08/11/21 07:26 Clumped Platelets Not Reportable 08/11/21 07:26 Plt Clumps, EDTA Not Reportable 08/11/21 07:26 Large Platelets Not Reportable 08/11/21 07:26 Giant Platelets Not Reportable 08/11/21 07:26 Platelet Satelliting Not Reportable 08/11/21 07:26 Plt Morphology Comment Not Reportable 08/11/21 07:26 RBC Morphology Normal 08/11/21 07:26 Dimorphic RBCs Not Reportable 08/11/21 07:26 Polychromasia Not Reportable 08/11/21 07:26 Hypochromasia Not Reportable 08/11/21 07:26 Poikilocytosis Not Reportable 08/11/21 07:26 Anisocytosis Not Reportable 08/11/21 07:26 Microcytosis Not Reportable 08/11/21 07:26 Macrocytosis Not Reportable 08/11/21 07:26 Spherocytes Not Reportable 08/11/21 07:26 Pappenheimer Bodies Not Reportable 08/11/21 07:26 Sickle Cells Not Reportable 08/11/21 07:26 Target Cells Not Reportable 08/11/21 07:26 Tear Drop Cells Not Reportable 08/11/21 07:26 Ovalocytes Not Reportable 08/11/21 07:26 Helmet Cells Not Reportable 08/11/21 07:26 [place] Bodies Not Reportable 08/11/21 07:26 [place] Rings Not Reportable 08/11/21 07:26 Shivam Cells Not Reportable 08/11/21 07:26 Bite Cells Not Reportable 08/11/21 07:26 Crenated Cell Not Reportable 08/11/21 07:26 Elliptocytes Not Reportable 08/11/21 07:26 Acanthocytes (Spur) Not Reportable 08/11/21 07:26 Rouleaux Not Reportable 08/11/21 07:26 Hemoglobin C Crystals Not Reportable 08/11/21 07:26 Schistocytes Not Reportable 08/11/21 07:26 Malaria parasites Not Reportable 08/11/21 07:26 Eliot Bodies Not Reportable 08/11/21 07:26 Hem Pathologist Commnt No 08/11/21 07:26 PT 16.0 Sec. (12.2-14.9) H 08/09/21 23:04 INR 1.15 (0.87-1.13) H 08/09/21 23:04 Sodium 138 mmol/L (137-145) 08/13/21 09:38 Potassium 3.0 mmol/L (3.6-5.0) L 08/13/21 09:38 Chloride 99.2 mmol/L (98-107) 08/13/21 09:38 Carbon Dioxide 25 mmol/L (22-30) D 08/13/21 09:38 Anion Gap 17 mmol/L 08/13/21 09:38 BUN 4 mg/dL (9-20) L 08/13/21 09:38 Creatinine 0.5 mg/dL (0.8-1.3) L 08/13/21 09:38 Estimated GFR > 60 ml/min 08/13/21 09:38 BUN/Creatinine Ratio 8 % 08/13/21 09:38 Glucose 140 mg/dL (75-100) H 08/13/21 09:38 Calcium 8.3 mg/dL (8.4-10.2) L 08/13/21 09:38 Phosphorus 2.10 mg/dL (2.5-4.5) L D 08/13/21 09:38 Magnesium 1.60 mg/dL (1.7-2.3) L 08/13/21 09:38 Iron 56 ug/dL (49-181) 08/10/21 05:32 TIBC 267 mcg/dL (250-450) 08/10/21 05:32 % Saturation 20.97 % 08/10/21 05:32 Transferrin 216 mg/dl (180-329) 08/10/21 05:32 Total Bilirubin 1.60 mg/dL (0.1-1.2) H 08/13/21 09:38 Direct Bilirubin 0.6 mg/dL (0-0.2) H 08/09/21 23:04 Indirect Bilirubin 0.7 mg/dL 08/09/21 23:04 AST 128 units/L (5-40) H 08/13/21 09:38 ALT 62 units/L (7-56) H 08/13/21 09:38 Alkaline Phosphatase 91 units/L (35-129) 08/13/21 09:38 Total Creatine Kinase 86 units/L (55-170) 08/09/21 23:04 Total Protein 5.8 g/dL (6.3-8.2) L 08/13/21 09:38 Albumin 3.3 g/dL (3.9-5) L 08/13/21 09:38 Albumin/Globulin Ratio 1.3 % 08/13/21 09:38 Lipase 92 units/L (13-60) H 08/12/21 07:39 Vitamin B12 1189 pg/mL (211-911) H 08/10/21 05:32 Urine Color Yellow (Yellow) 08/10/21 01:25 Urine Turbidity Clear (Clear) 08/10/21 01:25 Urine pH 5.0 (5.0-7.0) 08/10/21 01:25 Ur Specific [place] 1.028 (1.003-1.030) 08/10/21 01:25 Urine Protein 30 mg/dl mg/dL (Negative) 08/10/21 01:25 Urine Glucose (UA) 50 mg/dL (Negative) 08/10/21 01:25 Urine Ketones 80 mg/dL (Negative) 08/10/21 01:25 Urine Blood Sm (Negative) 08/10/21 01:25 Urine Nitrite Neg (Negative) 08/10/21 01:25 Urine Bilirubin Neg (Negative) 08/10/21 01:25 Urine Urobilinogen < 2.0 mg/dL (<2.0) 08/10/21 01:25 Ur Leukocyte Esterase Neg (Negative) 08/10/21 01:25 Urine WBC (Auto) 1.0 /HPF (0.0-6.0) 08/10/21 01:25 Urine RBC (Auto) 7.0 /HPF (0.0-6.0) 08/10/21 01:25 U Epithel Cells (Auto) 6.0 /HPF (0-13.0) 08/10/21 01:25 Hyaline Casts 13 /LPF 08/10/21 01:25 Urine Mucus Few /HPF 08/10/21 01:25 Plasma/Serum Alcohol < 0.01 % (0-0.07) 08/09/21 23:04 Hep Bs Antigen Non-reactive (Negative) 08/12/21 17:24 Hep B Core IgM Ab Non-reactive (NonReactive) 08/12/21 17:24 Hepatitis C Antibody Non-reactive (NonReactive) 08/12/21 17:24 [place]/IV: Voiding Method Urinal Active Medications - Current Medications Current Medications: Generic Name Dose Route Start Last Admin Trade Name Freq PRN Reason Stop Dose Admin Acetaminophen 650 mg 08/10/21 01:11 08/13/21 16:40 Acetaminophen 325 Mg Tab PO 650 mg Q4H PRN Administration Pain MILD(1-3)/Fever >100.5/MATIAS Chlorpromazine HCl 25 mg 08/12/21 15:46 08/13/21 16:39 Chlorpromazine 25 Mg Tab PO 25 mg Q6H PRN Administration Hiccups Folic Acid 1 mg 08/12/21 10:00 08/13/21 10:50 Folic Acid 1 Mg Tab PO 1 mg QDAY TINO Administration Heparin Sodium (Porcine) 5,000 unit 08/10/21 10:00 08/13/21 10:50 Heparin 5,000 Unit/1 Ml Vial SUB-Q 5,000 unit Q12HR TINO Administration Magnesium Sulfate 2 gm in 50 mls @ 25 mls/hr 08/13/21 19:39 Magnesium Sulfate 2gm/50ml IV 08/13/21 21:38 ONCE ONE Potassium Phosphate 45 mmol/ 515 mls @ 85 mls/hr 08/13/21 19:39 Sodium Chloride IV 08/14/21 01:42 ONCE ONE Ketorolac Tromethamine 15 mg 08/13/21 19:22 Ketorolac 30 Mg/1 Ml Inj IV 08/18/21 19:21 Q6H PRN Pain, Moderate (4-6) Lorazepam 2 mg 08/12/21 15:57 08/13/21 04:06 Lorazepam 2 Mg/Ml Vial IV 2 mg Q4H PRN Administration Agitation Metoclopramide HCl 10 mg 08/10/21 01:21 08/13/21 00:29 Metoclopramide 10 Mg/2 Ml Inj IV 10 mg Q6H PRN Administration Nausea And Vomiting Ondansetron HCl 4 mg 08/10/21 01:11 08/10/21 22:36 Ondansetron 4 Mg/2 Ml Inj IV 4 mg Q3H PRN Administration Nausea And Vomiting Sodium Chloride 10 ml 08/10/21 10:00 08/13/21 16:38 Sodium Chloride 0.9% 10 Ml Flush Syringe IV 10 ml BID TINO Administration Sodium Chloride 10 ml 08/10/21 01:11 Sodium Chloride 0.9% 10 Ml Flush Syringe IV PRN PRN LINE FLUSH Sodium Phosphate 250 mg 08/12/21 10:00 08/13/21 16:38 K-Phos Neutral 250 Mg Tab PO 250 mg QID TINO Administration Thiamine HCl 100 mg 08/12/21 10:00 08/13/21 10:00 Thiamine 100 Mg Tab PO 100 mg QDAY TINO Administration Nutrition/Malnutrition Assess - Dietary Evaluation Nutrition/Malnutrition Findings: Nutrition Notes Start: 08/10/21 09:30 Freq: Status: Active Protocol: Document 08/12/21 17:49 AIDAN (Rec: 08/12/21 18:09 AIDAN [id number]) Nutrition Notes Initial or Follow up Brief Note Current Diagnosis Malnutrition Other Pertinent Diagnosis Acute Pancreatitis, Cholelithiasis, Hepatic Steatosis, EtOH dependence, .. . Current Diet Mechanical Soft Diet (from D 08/12). Labs/Tests 08/12: K 3.0, Cl 108.0, CO2 17 , BUN 4, Crea 0.5, Glu 254. Pertinent Medications 08/12: Folic Acid, KCl 40 mEq, Thiamine, others nutritionally unremarkable. Height 5 ft 11 in Weight 88.3 kg Arma Body Weight (kg) 78.18 BMI 27.1 Intake Prior to Admission Good Weight change and time frame Pt denied having loss body weight [employer]. 1.1 Kg body weight gain in 2 days reported. Weight Status Overweight Subjective/Other Information RD consult for routine F/U on Dietary Advancement. Diet advanced to PO Mechanical Soft for tonight, no reports available on Pt's PO intake of meals at the time, will assess at F/U. Previously Clear Liquids Diet was well tolerated, according to Progress notes. Percent of energy/protein needs met: Prescribed Mechanical Soft Diet provides for energy/ protein needs (2,048 Kcal/97 g ) during LOS. #1 Nutrition Diagnosis Inadequate oral intake,Altered GI function Comments: Change to Altered GI function diagnosis. Etiology Acute Pancreatitis, Cholelithiasis, Steatohepatitis. Is patient on ventilator? No Is Patient Ambulatory and/or Out of Bed Yes REE-([place]-ambulatory/OOB) [ 2333.669 [id number]] Calculation Used for Recommendations [facility] Additional Notes Protein: 0.8-1 g/Kg ABW; 70-88 g/day. Fluids: 1 ml/Kcal, or as per MD. Nutrition Intervention Change Diet Order: Continue Mechanical Soft Diet , advance as tolerated to Regular Diet, when feasible. Goal #1 Facilitate PO intake of meals with elemental, textural, or mechanical modification during LOS. Goal #2 Maintain body weight within +/ -3% of admission body weight during LOS. Follow-Up By: 08/19/21 Additional Comments Continue monitoring food tolerance, %PO intake of meals , and BM.
[2021-08-14] MEDS: K-PHOS NEUTRAL 250 MG TAB PO SCH (00:33)
--- NOTE | 2021-08-14 08:30 | Discharge Summary ---
Providers - Providers Date of Admission: 08/10/21 01:11 Date of discharge: 08/14/21 Attending physician: ALVIN CARBAJAL 08/10/21 04:47 Consult to Physician [CONS] Routine Comment: Consulting Provider: EMETERIO ALVAREZ Physician Instructions: Reason For Exam: Acute pancreatitis and cholelithiasis 08/12/21 16:08 Physical Therapy Evaluation and Treat [CONS] Routine Comment: Discharge needs Reason For Exam: General debility/alcohol withdrawal/eval and treat Primary care physician: ANA FREEMAN Hospitalization Reason for admission: Acute abdominal pain/acute pancreatitis/alcohol hepatitis Condition: Good Pertinent studies: CT abdomen and pelvis acute pancreatitis without necrosis or fluid collection Hepatic steatosis Cholelithiasis without evidence of acute cholecystitis Hospital course: 45-year-old -[place] male patient with no significant past medical hist ory except for chronic alcohol use was admitted through emergency room with severe abdominal pain of 2 days duration. Initial work-up with CT abdomen and pelvis was consistent with acute pancreatitis with very high lipase, patient was placed on n.p.o. evaluated by GI patient had cholelithiasis and severe metabolic acidosis, symptomatically managed and symptoms significantly improved and lipase levels are trending down patient was started on clear liquids and advance diet as tolerated. Patient also was in acute alcohol withdrawal symptoms started on CIWA protocol, patient received multivitamins multiple electrolyte abnormalities were corrected. Patient symptoms slowly but gradually improved today patient is comfortable ambulatory and tolerating oral nutrition PT has evaluated and recommended home PT Stable at discharge advised to follow-up with primary care physician Advised alcohol rehabilitation and advised to attend alcohol support group, patient verbalized understanding Stable at discharge Discharge diagnosis: --Hypokalemia; hypophosphatemia/hypomagnesemia Replenished, advised to follow primary care physician to check his levels -- Acute pancreatitis Current Visit: Yes Status: Acute Alcohol induced ,Resolved Patient has multiple gallstones without acute cholecystitis Lipase is trending down [phone] -181 -92 -- Metabolic acidosis Current Visit: Yes Status: Acute Secondary to persistent vomiting IV fluids for now closely monitor -- Dehydration Current Visit: Yes Status: Acute IV fluids plenty oral fluids -- EtOH dependence Current Visit: Yes Status: Acute CIWA protocol initiated Strongly advised to quit alcohol intake Plan seek alcohol rehabilitation/alcohol Anonymous support group --Cholelithiasis Current Visit: Yes Status: Chronic Cholelithiasis without cholecystitis Surgery consult if needed -- Transaminitis/alcohol hepatitis Current Visit: Yes Status: Acute Check hepatitis profile Possible alcohol induced Possible gallstone induced -- Hypocalcemia Current Visit: Yes Status: Acute IV calcium given Caltrate when the pancreatitis resolves -- Anemia Current Visit: Yes Status: Chronic Anemia work-up Serum folic acid and B12 levels and iron levels --Malnutrition Current Visit: Yes Status: Chronic Dietary supplements when patient starts eating --Monitor for alcohol withdrawal symptoms; CIWA protocol as needed[patient is requiring very minimal Ativan] DC CIWA protocol, IV Ativan as needed for agitation Physical therapy occupational therapy DC planning per case management -- DVT prophylaxis Current Visit: Yes Status: Acute On heparin and GI prophylaxis -- Advance care planning Current Visit: Yes Status: Acute Disease education conducted, care plan discussed, diagnosis discussed, prognosis discussed. Patient is full code./Patient acknowledged understanding and agreement with care plan +30 minutes. We will closely monitor patient and adjust the management as needed Plan of care reviewed with the patient and his sister at the bedside Reviewed with the nurse and the case management We will contact [place] physician and update patient's condition tests and reports and treatment plan. PT evaluated the patient, recommend home health PT with 24-hour supervision at home Versus subacute rehab DC planning per case management Stable at discharge Disposition: 01 HOME / SELF CARE / HOMELESS Final Discharge Diagnosis (Prints w/discharge instructions): Hypokalemia resolved. Hypomagnesemia corrected. Acute pancreatitis improved. Metabolic acidosis resolved. Dehydration resolved. Chronic alcohol use/counseling done. Cholelithiasis/asymptomatic. Alcohol hepatitis significantly improved. Anemia. Moderate malnutrition. Alcohol withdrawal symptoms resolved Time spent for discharge: 35 minutes Core Measure Documentation - Palliative Care Palliative Care/ Comfort Measures: Not Applicable - Core Measures Any of the following diagnoses?: none Exam - Constitutional Vitals: Temp Pulse Resp BP Pulse Ox 98.6 F 84 18 106/68 98 08/14/21 05:13 08/14/21 05:13 08/14/21 05:13 08/14/21 05:13 08/14/21 05:13 General appearance: Present: no acute distress, well-nourished - EENT Eyes: Present: PERRL, EOM intact - Neck Neck: Present: supple, normal ROM - Respiratory Respiratory effort: normal Respiratory: bilateral: diminished, negative: rales, rhonchi, wheezing - Cardiovascular Rhythm: regular Heart Sounds: Present: S1 & S2 - Extremities Extremities: no ischemia, No edema - Abdominal General gastrointestinal: Present: soft, non-tender, non-distended, normal bowel sounds - Integumentary Integumentary: Present: clear, warm - Musculoskeletal Musculoskeletal: strength equal bilaterally, generalized weakness - Psychiatric Psychiatric: appropriate mood/affect, cooperative - Neurologic Neurologic: moves all extremities Plan Activity: no driving until cleared by PCP (Under the influence of alcohol), fall precautions Diet: regular Additional Instructions: Patient advised to seek alcohol rehabilitation/alcohol detox program. Also advised to join [employer] supports improved. If you have worsening symptoms contact MD or go to the nearest emergency room Follow up with: ANA FREEMAN MD [Primary Care Provider] - 7 Days Prescriptions: Folic Acid [Folvite] 1 mg PO QDAY #30 tablet Famotidine [Pepcid] 10 mg PO BID #30 tablet chlorproMAZINE [Thorazine] 25 mg PO Q6H PRN #20 tab PRN Reason: Hiccups Thiamine [Vitamin B-1] 100 mg PO QDAY #30 tablet
[2021-08-14] MEDS: HEPARIN 5,000 UNIT/1 ML VIAL SUB-Q SCH (10:36)
[2021-08-14] MEDS: FOLIC ACID 1 MG TAB PO SCH (10:37)
[2021-08-14] MEDS: THIAMINE 100 MG TAB PO SCH (10:37)
[2021-08-14 13:01] VITALS: BP 110/72
== END 2021-08-14 13:09 | disposition home or self-care (01) | DRG 444 ==
LOC: ED 21:42 → 3A 08-10 01:11
PROVIDERS: ADMIT Internal Medicine; ATTEND Internal Medicine
DX: K80.20 Calculus of gallbladder without cholecystitis without obstruction (principal); K85.20 Alcohol induced acute pancreatitis without necrosis or infection; E87.2 Acidosis; F10.288 Alcohol dependence with other alcohol-induced disorder; E44.0 Moderate protein-calorie malnutrition; K70.10 Alcoholic hepatitis without ascites; I10 Essential (primary) hypertension; E86.0 Dehydration; E83.51 Hypocalcemia; E87.6 Hypokalemia; D64.9 Anemia, unspecified; E83.42 Hypomagnesemia; Z20.822 Contact with and (suspected) exposure to COVID-19; E83.39 Other disorders of phosphorus metabolism; Z82.49 Family history of ischemic heart disease and other diseases of the circulatory system; Z88.8 Allergy status to other drugs, medicaments and biological substances; Z68.27 Body mass index [BMI] 27.0-27.9, adult
CPT/HCPCS: 36415; 74177; 80048; 80053; 80074; 80076; 80320; 81001; 82550; 82607; 82747; 83550; 83690; 83735; 84100; 84132; 85007; 85025; 85610; 93005; G0378; J3490; J7510; Q0162; G0480; J0610; J1170; J1644; J2060; J2270; J2405; J2765; J3475; J3480; J7030; J7040; J7042; J7120; Q0161; Q9967